=== PATIENT | female | born 1945 | race Caucasian/White ===

== ENCOUNTER 2018-01-23 15:19 | Outpatient (CLI) ==
--- NOTE | 2018-01-23 16:00 | US ---
EXAM: Left lower extremity venous doppler. HISTORY: Left leg pain and swelling. COMPARISON: None available. TECHNIQUE: Multiple grayscale and color doppler images were obtained. FINDINGS: There is normal flow, compressibility and augmentation of flow within the left common femo ral, greater saphenous, profunda, femoral, popliteal, posterior tibial, anterior tibial and peroneal veins. IMPRESSION: No evidence for left lower extremity deep vein thrombosis at the levels examined.
== END 2018-01-23 15:20 | disposition home or self-care (01) ==
LOC: RAD 15:19
PROVIDERS: ATTEND General Practice
DX: M79.89 Other specified soft tissue disorders (principal); M79.605 Pain in left leg; E87.6 Hypokalemia
CPT/HCPCS: 36415; 80069

== ENCOUNTER 2018-12-08 11:51 | Emergency (ER) ==
[2018-12-08 11:56] VITALS: TEMP 98.3; BMI 27.6
[2018-12-08] MEDS ORDERED: CARDIZEM INJ IVP STA ×4 (12:18→16:10)
--- NOTE | 2018-12-08 12:18 | ED.PDOC ---
General ED Provider: Dr. JAYLEN WALDRON Chief Complaint: Respiratory Complaint Stated Complaint: 73 y old pleasant lady registering heart rate at 178/min withy shortness of breath,Calm and conversant says this is the first time lópez she had such a rapid palpitations.Complete work-up for cardiac ischemia and other causes. follows, Time Seen by Physician: 12:00 Mode of Arrival: Walk-In Information Source: Patient, Family Exam Limitations: No limitations [facility] Nursing and Triage Documentation Reviewed and Agree: Yes Does patient meet sepsis criteria?: No System Inflammatory Response Syndrome: Not Applicable Sepsis Protocol: For patient's 13 years and over: Temp is 96.8 and below OR 101 and greater Pulse >90 BPM Resp >20/minute Acutely Altered Mental Status Are patient's symptoms suggestive of a new infection, such as: -Pneumonia -Skin, Soft Tissue -Endocarditis -UTI -Bone, Joint Infection -Implantable Device -Acute Abdominal Infection -Wound Infection -Meningitis -Blood Stream Catheter Infection -Unknown Cardiovascular Complaint Exam - Palpitations Complaint/Exam Onset/Duration: today-last night Symptoms Are: Still present Timing: Constant Initial Severity: Moderate Current Severity: Moderate Character: Reports: Fast Aggravating: Reports: Exertion Alleviating: Reports: Rest Associated Signs and Symptoms: Reports: Lightheadedness Related Surgical History: Reports: None Cardiac Risk Factors: Reports: None Pulmonary Embolism Risk Factors: Reports: None Thyroid Exam: Normal Differential Diagnoses: Cardiomyopathy, CAD, CHF, COPD, Hypokalemia, Paroxysmal SVT Quality Indicators for AMI: EKG in 10min. Quality Indicator For Non-Traumatic Chest Pain/Syncope: EKG Performed Review of Systems - Review Of Systems Constitutional: Reports: Weakness Eyes: Reports: No symptoms Ears, Nose, Mouth, Throat: Reports: No symptoms Respiratory: Reports: Short of air Cardiac: Reports: Palpitations GI: Reports: No symptoms : Reports: No symptoms Musculoskeletal: Reports: No symptoms Neurological: Reports: No symptoms Endocrine: Reports: No symptoms Hematologic/Lymphatic: Reports: No symptoms All Other Systems: Reviewed and Negative Past Medical History - Past Medical History Previously Healthy: Yes Endocrine: Reports: None Cardiovascular: Reports: None Respiratory: Reports: None Hematological: Reports: None Gastrointestinal: Reports: None Genitourinary: Reports: None Neuro/Psych: Reports: None Musculoskeletal: Reports: None Cancer: Reports: None Last Menstrual Period: NA - Surgical History General Surgical History: Reports: Orthopedic - Family History Family History: Reports: None - Social History Smoking Status: Never smoker Hx Substance Use: No Alcohol Screening: None - Immunizations Tetanus Shot up to Date: Yes Influenza Vaccine within 12 Months: No Pneumococcal Vaccine up to Date: No Physical Exam - Physical Exam Appearance: Well-appearing Ill-appearing: None Pain Distress: None Eyes: ESTEBAN, EOMI, Conjunctiva clear ENT: Ears normal, Nose normal Neck: Supple Respiratory: Airway patent, Breath sounds diminished, Rhonchi Cardiovascular: No rub, No murmur GI/: Soft, Nontender, No masses Musculoskeletal: Normal strength, ROM intact, No edema Skin: Warm Neurological: Sensation intact, Motor intact, Reflexes intact Psychiatric: Affect appropriate Physician Notification - Case Discussed Physician Not[facility].Transfered patien Time of Notification: 16:52 (CHF decomp Atrial fib) Critical Care Note - Critical Care Note Total Time (mins): 0 Course - Course Hematology/Chemistry: 12/08/18 12:50 12/08/18 12:50 Orders, Labs, Meds: Lab Review 12/08/18 12/08/18 12:50 12:50 WBC 7.50 RBC 4.41 Hgb 12.6 Hct 39.3 MCV 89.1 MCH 28.6 MCHC 32.1 RDW Coeff of Devonte 14.6 Plt Count 317 Immature Gran % (Auto) 0.3 Neut % (Auto) 67.5 Lymph % (Auto) 24.8 [place] % (Auto) 6.4 Eos % (Auto) 0.7 Baso % (Auto) 0.3 Immature Gran # (Auto) 0.0 Neut # (Auto) 5.1 Lymph # (Auto) 1.9 [place] # (Auto) 0.5 Eos # (Auto) 0.1 Baso # (Auto) 0.0 Sodium 133.3 L Potassium 3.12 L Chloride 96.7 L Carbon Dioxide 26.5 Anion Gap 13.22 BUN 24.9 H Creatinine 0.59 L Estimated GFR (MDRD) 100.00 BUN/Creatinine Ratio 42.20 Glucose 107.3 H Calcium 9.13 Total Bilirubin 0.62 AST 26.5 ALT 19.3 Alkaline Phosphatase 101.9 Total Creatine Kinase 71.3 Troponin I < 0.012 Total Protein 7.35 Albumin 4.23 Globulin 3.12 Albumin/Globulin Ratio 1.35 Orders Category Date Time Status EKG-(ED ONLY) Stat CARDIO 12/08/18 12:38 Completed EKG-(ED ONLY) Stat CARDIO 12/08/18 12:38 Completed NPO REMINDER: IMAGING ONCE CARE 12/08/18 13:17 Completed ED APPLY O2 .ONCE EMERGENCY 12/08/18 12:38 Active ED IV/MEDIPORT/POWERPORT .ONCE EMERGENCY 12/08/18 12:38 Active CBC W/ AUTO DIFF Stat LAB 12/08/18 12:50 Completed COMPREHENSIVE METABOLIC PANEL Stat LAB 12/08/18 12:50 Completed CREATINE KINASE Stat LAB 12/08/18 12:50 Completed TROPONIN I Stat LAB 12/08/18 12:50 Completed 0.9 % Sodium Chloride [Saline Flush] MEDS 12/08/18 12:38 Active 1 syr IVF PRN PRN Diltiazem HCl Inj [Cardizem Inj] MEDS 12/08/18 12:18 Discontinued 15 mg IVP ONCE STA Diltiazem HCl Inj [Cardizem Inj] MEDS 12/08/18 12:27 Discontinued 15 mg IVP ONCE STA Diltiazem HCl Inj [Cardizem Inj] MEDS 12/08/18 16:08 Discontinued 15 mg IVP ONCE STA Diltiazem HCl [Cardizem Inj] MEDS 12/08/18 16:10 Discontinued 15 mg IVP ONCE STA Sodium Chloride 0.9% [Sodium Chloride] 1,000 ml MEDS 12/08/18 12:38 Discontinued IV BOLUS CHEST, 1V AP ONLY Stat RADS 12/08/18 12:[address] CHEST PE PROTOCOL Stat RADS 12/08/18 13:16 Completed Medications Generic Name Dose Route Start Last Admin Trade Name Freq PRN Reason Stop Dose Admin Sodium Chloride 1 syr 12/08/18 12:38 Saline Flush IVF PRN PRN To flush IV Discontinued Medications Generic Name Dose Route Start Last Admin Trade Name Freq PRN Reason Stop Dose Admin Diltiazem HCl 15 mg 12/08/18 12:18 12/08/18 12:30 Cardizem Inj IVP 12/08/18 12:19 15 mg ONCE STA Administration Diltiazem HCl 15 mg 12/08/18 12:27 12/08/18 12:31 Cardizem Inj IVP 12/08/18 12:28 Not Given ONCE STA Diltiazem HCl 15 mg 12/08/18 16:08 12/08/18 16:21 Cardizem Inj IVP 12/08/18 16:09 15 mg ONCE STA Administration Diltiazem HCl 15 mg 12/08/18 16:10 Cardizem Inj IVP 12/08/18 16:11 ONCE STA Sodium Chloride 1,000 mls @ 250 mls/hr 12/08/18 12:38 12/08/18 12:39 Sodium Chloride IV 12/08/18 16:37 250 mls/hr BOLUS STA Administration Vital Signs: Temp Pulse Resp BP Pulse Ox 12/08/18 11:51 98.3 F 128 H 20 123/76 98 LATONYA Risk Score LATONYA Risk Score: Risk Score Odds of by 30D 0 0.1 (0.1-0.2) 1 0.3 (0.2-0.3) 2 0.4 (0.3-0.5) 3 0.7 (0.6-0.9) 4 1.2 (1.0-1.5) 5 2.2 (1.9-2.6) 6 3.0 (2.5-3.6) 7 4.8 (3.8-6.1) Departure - Departure Time of Disposition: 16:48 Disposition: TSF SHORT-TRM HOSP Discharge Problem: Congestive heart failure Instructions: A-fib (Atrial Fibrillation) (ED) Condition: Fair Pt referred to PMD for follow-up: Yes IPMP verified?: No Allergies/Adverse Reactions: Allergies codeine Allergy (Mild, Unverified 12/08/18 12:32) rash May cause patient to be loopy. meperidine HCl [From Demerol] Allergy (Mild, Unverified 12/08/18 12:32) rash May cause patient to be loopy. Home Medications: Ambulatory Orders Calcium Carbonate/Vitamin D3 [Caltrate 600 + D Tablet] 1 each PO BID 12/08/18 Multivitamin 1 cap PO DAILY 12/08/18 Disposition Discussed With: Patient, Family
[2018-12-08] MEDS ORDERED: SODIUM CHLORIDE 1,000 ML IV STA (12:38)
--- NOTE | 2018-12-08 13:57 | DI ---
EXAM: Chest one view HISTORY: Shortness of air COMPARISON: None TECHNIQUE: Single view chest was performed FINDINGS: Heart is enlarged. Pulmonary vascular congestion. Moderate right and small left pleural effusions. Bibasilar atelectasis and/or consolidation. No visible pneumothorax. Right shoulder art hroplasty. Advanced arthropathy left shoulder. IMPRESSION: Cardiomegaly with pulmonary vascular congestion and bilateral pleural effusions, right g reater than left. Bibasilar atelectasis and/or pneumonia.
--- NOTE | 2018-12-08 15:03 | CT ---
EXAM: CTA CHEST (PE PROTOCOL) HISTORY: Shortness of breath, palpitations TECHNIQUE: CTA chest with intravenous contrast. Multiplanar images were provided with 3-D reconstru ctions. 75 mL Omnipaque. COMPARISON: None FINDINGS: No pulmonary arterial filling defects were seen. There is at least mild atherosclerotic disease. Mi ld cardiomegaly is suggested. A few scattered mediastinal lymph nodes are nonspecific. There are moderate volume bilateral pleural effusions slightly greater on the right than on the left. There are bibasilar consolidations which are moderate in degree. Mild pulmonary vascular congestio n. Probable subtle interstitial edema. No pneumothorax. The bones reveal moderate degenerative changes of the spine. Right shoulder arthroplasty. IMPRESSION: 1. No pulmonary arterial thromboembolism identified. 2. Moderate volume bilateral pleural effusions with moderate adjacent consolidations (atelectasis ve rsus pneumonia). 3. Mild cardiomegaly. Mild central vascular congestion and minimal interstitial edema. 4. Nonspecific mediastinal lymph nodes.
[2018-12-08] MEDS ORDERED: LASIX IVP STA ×2 (17:21→17:38)
[2018-12-08] MEDS ORDERED: LASIX ONE (17:22)
[2018-12-08] MEDS ORDERED: CARDIZEM INJ 125 MG in SODIUM CHLORIDE 100 ML IV SCH (17:30)
[2018-12-08] MEDS ORDERED: CARDIZEM INJ ONE (17:30)
[2018-12-08 18:06] VITALS: BP 148/94
--- NOTE | 2018-12-08 18:08 | DI ---
EXAM: One-view chest HISTORY: Shortness of breath sudden onset TECHNIQUE: Single frontal view the chest was obtained. Comparison 12/08/2018 at 1245 hours. FINDINGS: There is stable blunting of the costophrenic angles. Heart is stable size. Interstitial opacities are seen within the lungs bilaterally. There is no pleural separation. There has been tot al right shoulder arthroplasty. There is arthritis of the left shoulder. IMPRESSION: Stable appearance of probable congestive heart failure. Small bilateral pleural effusions.
== END 2018-12-08 18:20 | disposition short-term general hospital (02) ==
LOC: ED 11:51
DX: I50.9 Heart failure, unspecified (principal); R53.1 Weakness; I48.91 Unspecified atrial fibrillation
CPT/HCPCS: 36415; 80053; 82550; 82803; 84484; 85025; 93005; 93010; 96361; 96365; 96375; 96376; 99285

== ENCOUNTER 2018-12-08 18:35 | Outpatient (CLI) ==
[2018-12-08 11:56] VITALS: BMI 27.6
== END 2018-12-08 18:58 | disposition short-term general hospital (02) ==
LOC: AMBL 18:35
PROVIDERS: ATTEND Emergency Medicine
DX: J18.9 Pneumonia, unspecified organism (principal); I48.91 Unspecified atrial fibrillation

== ENCOUNTER 2021-07-08 09:02 | Inpatient (IN) ==
[2021-07-08 12:56] LABS: BORDETELLA PARAPERTUSSIS (PCR) NOT DETECTED (NOT DETECT); BORDETELLA PERTUSSIS (PCR) NOT DETECTED (NOT DETECT); CHLAMYDIA PNEUMONIAE (PCR) NOT DETECTED (NOT DETECT); CORONAVIRUS 229E (PCR) NOT DETECTED (NOT DETECT); CORONAVIRUS HKU1 (PCR) NOT DETECTED (NOT DETECT); CORONAVIRUS NL63 (PCR) NOT DETECTED (NOT DETECT); CORONAVIRUS OC43 (PCR) NOT DETECTED (NOT DETECT); HUMAN METAPNEUMOVIRUS (PCR) NOT DETECTED (NOT DETECT); HUMAN RHINOVIRUS/ENTEROV (PCR) NOT DETECTED (NOT DETECT); INFLUENZA B (PCR) NOT DETECTED (NOT DETECT); MYCOPLASMA PNEUMONIAE (PCR) NOT DETECTED (NOT DETECT); PARAINFLUENZA VIRUS 1 (PCR) NOT DETECTED (NOT DETECT); PARAINFLUENZA VIRUS 2 (PCR) NOT DETECTED (NOT DETECT); PARAINFLUENZA VIRUS 3 (PCR) NOT DETECTED (NOT DETECT); PARAINFLUENZA VIRUS 4 (PCR) NOT DETECTED (NOT DETECT); RESPIRATORY SYNCYTIAL V (PCR) NOT DETECTED (NOT DETECT)
[2021-07-08 13:47] LABS: ADENOVIRUS (PCR) NOT DETECTED (NOT DETECT)
[2021-07-08 13:48] LABS: SARS_COV_2 (PCR) NOT DETECTED (NOT DETECT)
[2021-07-08] MEDS ORDERED: TYLENOL PO PRN (14:51)
[2021-07-08] MEDS ORDERED: ATROPINE SULFATE PFS IVP PRN (14:51)
[2021-07-08] MEDS ORDERED: NITROSTAT SL PRN (14:51)
--- NOTE | 2021-07-08 15:14 | DI ---
EXAM: Chest one view HISTORY: Shortness of breath COMPARISON: 06/29/2021 TECHNIQUE: Single view of the chest was performed FINDINGS: Normal heart size. Normal mediastinal contour. The lungs are clear. No pleural effusion or pneumothorax. No acute osseous abnormality. Right shoulder arthroplasty. IMPRESSION: No acute cardiopulmonary process.
[2021-07-08 15:18] LABS: BASOPHILS % (AUTO) 0.4 % (0.0-3.0); EOSINOPHILS # (AUTO) 0.1 K/ul (0.0-0.7); EOSINOPHILS % (AUTO) 1.8 % (0.0-7.0); HEMATOCRIT 26.5 % (37.0-47.0); HEMOGLOBIN 7.4 g/dl (12.0-16.0); IMMATURE GRANULOCYTE % (AUTO) 0.2 % (0.0-5.0); LYMPHOCYTES # (AUTO) 1.3 K/uL (0.60-3.4); LYMPHOCYTES % (AUTO) 28.4 (10.0-50.0); MEAN CORPUSCULAR HEMOGLOBIN 20.5 pg (27.0-31.0); MEAN CORPUSCULAR HGB CONC 27.9 (31.8-35.4); MEAN CORPUSCULAR VOLUME 73.4 fl (81.0-99.0); MONOCYTES # (AUTO) 0.5 K/uL (0.4-2.0); NEUTROPHILS # (AUTO) 2.7 K/ul (2.0-6.9); NEUTROPHILS % (AUTO) 59.2 % (42.2-75.2); PLATELET COUNT 226 10^3/uL (140-440); RDW COEFFICIENT OF VARIATION 21.4 % (11.6-14.8); RED BLOOD COUNT 3.61 10^6/ul (4.20-5.40)
[2021-07-08 15:31] LABS: ALANINE AMINOTRANSFERASE 17.2 U/L (0-35); ALBUMIN 3.6 g/dL (3.5-5.0); ALKALINE PHOSPHATASE 145.7 U/L (53-141); ASPARTATE AMINO TRANSFERASE 33.3 U/L (14-36); BILIRUBIN,TOTAL 0.22 mg/dL (0.2-1.3); BLOOD UREA NITROGEN 22.5 mg/dL (7-17); CALCIUM 8.74 mg/dL (8.4-10.2); CARBON DIOXIDE 32.3 mmol/L (22-30.0); CHLORIDE 98.6 mmol/L (98-107); CREATININE 0.52 mg/dL (0.60-1.30); POTASSIUM 3.26 mmol/L (3.5-5.1); TOTAL PROTEIN 6.99 g/dL (6.3-8.2)
[2021-07-08 15:33] LABS: PROTHROMBIN TIME 16.1 SEC (9.3-11.0)
[2021-07-08 15:43] LABS: ANISOCYTOSIS 3+ (NOT PRESENT); HYPOCHROMASIA 3+ (NOT PRESENT); STOMATOCYTES 1+ (NOT PRESENT); TARGET CELLS 2+ (NOT PRESENT)
[2021-07-08 15:59] VITALS: BMI 20.7
[2021-07-08 17:11] LABS: BILIRUBIN,URINE Negative (NEGATIVE); CLARITY,URINE Clear (CLEAR); COLOR,URINE Yellow (YELLOW); GLUCOSE, URINE (UA) Negative (NEGATIVE); KETONES,URINE Negative (NEGATIVE); LEUKOCYTE ESTERASE ,URINE Negative (NEGATIVE); NITRITE,URINE Negative (NEGATIVE); PROTEIN,URINE 1+ (NEGATIVE); URINE, BLOOD Negative (NEGATIVE); UROBILINOGEN,URINE 0.2 (0.2)
[2021-07-08 17:13] LABS: BACTERIA,URINE TRACE (NOT PRESENT)
[2021-07-08] MEDS: PEPCID PO SCH (17:16)
[2021-07-08] MEDS: PROTONIX PO SCH (17:16)
[2021-07-08] MEDS: COREG PO SCH (17:16)
[2021-07-08] MEDS: FERROUS SULFATE PO SCH (20:23)
[2021-07-08] MEDS: CARDIZEM PO SCH (20:23)
[2021-07-08] MEDS ORDERED: NON-FORMULARY MEDICATION (Ferrous Sulfate [Iron] 325 mg (65 mg iron) Tablet) PO SCH (21:00)
[2021-07-08] MEDS ORDERED: COREG PO SCH (21:00)
[2021-07-09 01:46] LABS: ALANINE AMINOTRANSFERASE 23.9 U/L (0-35); ALBUMIN 3.33 g/dL (3.5-5.0); ALKALINE PHOSPHATASE 134.1 U/L (53-141); BILIRUBIN,TOTAL 0.82 mg/dL (0.2-1.3); BLOOD UREA NITROGEN 21.2 mg/dL (7-17); CALCIUM 8.56 mg/dL (8.4-10.2); CARBON DIOXIDE 29.1 mmol/L (22-30.0); CHLORIDE 102.7 mmol/L (98-107); CREATININE 0.46 mg/dL (0.60-1.30); GLUCOSE 132.4 mg/dL (74-106); POTASSIUM 3.64 mmol/L (3.5-5.1); TOTAL PROTEIN 6.61 g/dL (6.3-8.2)
[2021-07-09 01:51] LABS: BASOPHILS % (AUTO) 0.5 % (0.0-3.0); EOSINOPHILS # (AUTO) 0.1 K/ul (0.0-0.7); EOSINOPHILS % (AUTO) 1.5 % (0.0-7.0); HEMATOCRIT 32.7 % (37.0-47.0); HEMOGLOBIN 9.8 g/dl (12.0-16.0); IMMATURE GRANULOCYTE % (AUTO) 0.2 % (0.0-5.0); LYMPHOCYTES # (AUTO) 1.1 K/uL (0.60-3.4); MEAN CORPUSCULAR HEMOGLOBIN 22.8 pg (27.0-31.0); MONOCYTES # (AUTO) 0.5 K/uL (0.4-2.0); MONOCYTES % (AUTO) 8.4 (0-10); NEUTROPHILS # (AUTO) 3.8 K/ul (2.0-6.9); NEUTROPHILS % (AUTO) 69.4 % (42.2-75.2); PLATELET COUNT 222 10^3/uL (140-440); RDW COEFFICIENT OF VARIATION 21.3 % (11.6-14.8)
[2021-07-09 02:34] LABS: PROTHROMBIN TIME 14.5 SEC (9.3-11.0)
[2021-07-09] MEDS: PEPCID PO SCH (05:45)
[2021-07-09] MEDS: PROTONIX PO SCH (05:45)
[2021-07-09 05:58] VITALS: BP 118/68; TEMP 97.6
[2021-07-09] MEDS ORDERED: LASIX TAB PO SCH (06:30)
[2021-07-09 08:19] LABS: OCCULT BLOOD SAMPLE 1 POSITIVE (NEGATIVE)
[2021-07-09] MEDS ORDERED: ZESTRIL PO SCH (09:00)
[2021-07-09] MEDS ORDERED: LANOXIN PO SCH (09:00)
[2021-07-09] MEDS ORDERED: LIPITOR PO SCH (09:00)
[2021-07-09] MEDS: COREG PO SCH (09:44)
[2021-07-09] MEDS: FERROUS SULFATE PO SCH (09:45)
[2021-07-09] MEDS: CARDIZEM PO SCH (09:45)
[2021-07-10 05:55] LABS: OCCULT BLOOD SAMPLE 2 NO SPECIMEN RECEIVED (NEGATIVE); OCCULT BLOOD SAMPLE 3 NO SPECIMEN RECEIVED (NEGATIVE)
--- NOTE | 2021-07-13 10:01 | HP ---
DATE OF SERVICE: 07/08/21 REASON FOR HOSPITALIZATION/HISTORY OF PRESENT ILLNESS: Hgb 7.5, pale and short of breath. Was 8.1 07/04. started Pepcid and Iron Denies blood in stool. 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 HEENT: No sinus drainage, no sore throat. RESPIRATORY: No cough, no congestion. CARDIOVASCULAR: No atypical chest pain for coronary artery disease. No angina, CHF symptoms, palpitations. Shortness of breath. GASTROINTESTINAL: No melena or abdominal pain. No GERD. GENITOURINARY: No hematuria, no prostatism, no polyuria. GRADING MACHINE OPERATOR: No blackout, no dizziness, no headache, no double vision. MUSCULOSKELETAL: No osteoarthritis pain, no joint swelling. ENDOCRINE: Weight loss, no weight gain. SKIN: Not dry, no rash. PSYCHIATRIC: Not anxious, no depression, no suicidal thoughts, no homicidal thoughts. SOCIAL HISTORY: Marital Status: . Alcohol Usage: No. Tobacco Usage: No. FAMILY HISTORY: Father Mother MEDICATIONS: Diltazem 60mg daily Coreg 12.5mg twice daily Digoxin 0.125mg daily Lisinopril 5mg daily Lasix 40mg PO daily Atorvastatin 10mg daily Coumadin 5mg Pepcid 20mg BID Iron 325mg BID ALLERGIES: Codeine Demerol PHYSICAL EXAMINATION: V/S: GENERAL APPEARANCE: Oriented times three. HEENT: Pallor. Dry mucous membranes. NECK: No JVP, no bruits. RESPIRATORY: Decreased breath sounds. CARDIOVASCULAR: S1, S2, no S3, no murmur. No cyanosis, clubbing. No ascites. GI/ABDOMEN: No tenderness. Bowel sounds are active. EXTREMITIES: +2 edema Left lower extremity, +1 Right lower extremity, pulses +1, equal. GRADING MACHINE OPERATOR: Deep tendon reflexes, sensory, motor and gait all normal. RECTAL: Colonoscopy refused/PELVIC: Refused years ago. ASSESSMENT: 1. Symptomatic anemia 2. Shortness of breath 3. Anemia 4. Leg edema 5. Atrial fibrillation- Coumadin 6. Dilated Cardiomyopathy 7. Calcified mitral annulus 8. Trace mitral regurgitation 9. Enlarged right ventricle, Enlarged left atrial cavity ejection fraction 55% 07/05 10.Mildly hypokinetic septum 11.Cardiac cath 12/01-No occlusion- BHP 12.B12 deficiency 13.Pulmonary hypertension 14.Left THR 15.Right shoulder replacement PLAN: 1. Admit 2. Routine telemetry orders 3. No cardiac markers 4. CBC and CMP INR now and daily 5. Type cross and administer two units of PRBC's 6. Continue all home medication 7. Hold Coumadin 8. Stool for occult blood 9. Protonix 40mg BID 10.U/A 11.Regular diet 12.O2 at 1-2 liters nasal canula PRN TIME SPENT: More than 70 minutes. MTDD
--- NOTE | 2021-08-06 13:14 | DS ---
DATE OF SERVICE: 07/09/2021 FINAL DIAGNOSIS: 1. Symptomatic anemia 2. Shortness of breath 3. Dependent leg edema 4. Atrial fibrillation on Coumadin 5. Dilated cardiomyopathy 6. Calcified mitral annulus 7. Trace mitral regurgitation 8. Enlarged right ventricle 9. Pulmonary hypertension DISCHARGE INSTRUCTIONS: Discharge home. Followup with us in a weeks. MEDICATIONS AT DISCHARGE: Atorvastatin 10mg PO daily Carvedilol 12.5mg PO BID Digoxin 125mcg PO daily Lasix 40mg PO daily Lisinopril 5mg Po daily Coumadin 5mg PO daily Cardizem 60mg PO BID Pepcid 20mg BID Iron 325mg PO BID DIET INSTRUCTIONS: Regular diet, Low salt. ACTIVITY: Keep legs elevated. Gradually resume activity as tolerated with rolling walker. DISEASE SPECIFIC EDUCATION: Anemia Followup Diet Leg elevation HOSPITAL COURSE: This is a 76 year old white female who was a direct admit from our office. She had a history of anemia and rechecked her Hgb. This is a fairly new patient to us. We rechecked her hgb after a few days of starting her on Iron and Pepcid and it was 8.1 hgb and then 4 days later was 7.5.In our office she exhibited pallor, shortness of breath and she could not walk. She had 2+ edema left lower extremity and 1+ edema in the right lower extremity. She was admitted with symptomatic anemia and shortness of breath. She was started on routine telemetry orders. She is on Coumadin as she has a history of afib. She was typed and crossed and given two units of packed red cells with IV Lasix 20mg in between. We instructed to hold her Coumadin. Did stool for occult blood. Started on her Protonix IV 40mg Q 12 hours, urinalysis and oxygen at 1-2 liters and ABG on room air. Following day after giving two units and given IV Lasix hgb was up to 9.8. Leg edema had improved. She reported feeling much better. She stated that she wanted to go home. Stool for occult blood was positive. Urine was normal. She will go home and continue her iron PO. We will continue on Protonix along with Pepcid. We will refer her for a colonoscopy. She will followup in our office on Tuesday with repeat CBC and INR. Discharged in stable condition. TIME SPENT: More than 60 minutes. [facility]
== END 2021-07-09 13:07 | disposition home or self-care (01) | DRG 812 ==
LOC: LAB 09:02 → MEDSURG A 14:25
PROVIDERS: ADMIT Internal Medicine; ATTEND Internal Medicine

== ENCOUNTER 2022-11-01 13:54 | Inpatient (IN) ==
[2022-11-01 15:21] LABS: SARS COV-2 RNA RAPID NAAT NEGATIVE (NEGATIVE)
[2022-11-01] MEDS ORDERED: ATROPINE SULFATE PFS IVP PRN (16:22)
[2022-11-01] MEDS ORDERED: TYLENOL PO PRN (16:22)
[2022-11-01] MEDS ORDERED: NITROSTAT SL PRN (16:22)
[2022-11-01] MEDS ORDERED: DECADRON IM ONE (16:26)
[2022-11-01] MEDS ORDERED: LASIX IVP ONE (16:27)
[2022-11-01] MEDS ORDERED: NORCO 5-325 PO PRN (16:32)
[2022-11-01 16:48] LABS: BASOPHILS % (AUTO) 0.6 % (0.0-3.0); EOSINOPHILS # (AUTO) 0.1 K/ul (0.0-0.7); EOSINOPHILS % (AUTO) 1.8 % (0.0-7.0); HEMATOCRIT 40.4 % (37.0-47.0); IMMATURE GRANULOCYTE % (AUTO) 0.2 % (0.0-5.0); LYMPHOCYTES # (AUTO) 1.3 K/uL (0.60-3.4); LYMPHOCYTES % (AUTO) 20.5 (10.0-50.0); MEAN CORPUSCULAR HEMOGLOBIN 30.2 pg (27.0-31.0); MEAN CORPUSCULAR HGB CONC 32.2 (31.8-35.4); MEAN CORPUSCULAR VOLUME 93.7 fl (81.0-99.0); MONOCYTES # (AUTO) 0.5 K/uL (0.4-2.0); MONOCYTES % (AUTO) 7.7 (0-10); NEUTROPHILS # (AUTO) 4.3 K/ul (2.0-6.9); NEUTROPHILS % (AUTO) 69.2 % (42.2-75.2); PLATELET COUNT 195 10^3/uL (140-440); RDW COEFFICIENT OF VARIATION 13.5 % (11.6-14.8); RED BLOOD COUNT 4.31 10^6/ul (4.20-5.40); WHITE BLOOD COUNT 6.23 K/ul (4.6-10.2)
[2022-11-01 16:49] VITALS: BMI 19.9
[2022-11-01] MEDS ORDERED: SODIUM CHLORIDE 1,000 ML IV SCH (17:00)
[2022-11-01 17:06] LABS: ALANINE AMINOTRANSFERASE 17.8 U/L (0-35); ALKALINE PHOSPHATASE 138.7 U/L (53-141); ASPARTATE AMINO TRANSFERASE 24.1 U/L (14-36); BILIRUBIN,TOTAL 0.61 mg/dL (0.2-1.3); BLOOD UREA NITROGEN 15.2 mg/dL (7-17); CALCIUM 8.83 mg/dL (8.4-10.2); CHLORIDE 95.1 mmol/L (98-107); CREATININE 0.53 mg/dL (0.60-1.30); GLUCOSE 139.9 mg/dL (74-106); POTASSIUM 3.11 mmol/L (3.5-5.1); PROTHROMBIN TIME 38.1 SEC (9.3-11.0); SODIUM 135.9 mmol/L (134.5-145); TOTAL PROTEIN 7.36 g/dL (6.3-8.2)
[2022-11-01 17:12] LABS: CREATINE KINASE 73.5 U/L (30-135)
[2022-11-01] MEDS ORDERED: ULTRAM PO PRN (17:23)
[2022-11-01 17:24] LABS: ALBUMIN 3.89 g/dL (3.5-5.0)
[2022-11-01 17:25] LABS: TROPONIN I < 0.012 ng/ml (0.0000-0.120)
--- NOTE | 2022-11-01 17:49 | DI ---
EXAM: CHEST ONE-VIEW History: Shortness of breath FINDINGS: Cardiac silhouette is upper limits. Pulmonary vasculature is normal. The lungs are hyper expanded. Chronic elevation of the left hemidiaphragm. No infiltrative opacities are seen. No acut e chest wall abnormality. Right shoulder arthroplasty. Impression: Borderline heart size without acute cardiopulmonary disease
[2022-11-01] MEDS: COREG PO SCH (17:59)
[2022-11-01 18:27] LABS: BILIRUBIN,URINE Negative (NEGATIVE); CLARITY,URINE Clear (CLEAR); COLOR,URINE Yellow (YELLOW); GLUCOSE, URINE (UA) Negative (NEGATIVE); KETONES,URINE Negative (NEGATIVE); LEUKOCYTE ESTERASE ,URINE Negative (NEGATIVE); NITRITE,URINE Negative (NEGATIVE); PROTEIN,URINE Negative (NEGATIVE); URINE, BLOOD Negative (NEGATIVE)
[2022-11-01] MEDS: CARDIZEM PO SCH (20:21)
[2022-11-01] MEDS: PEPCID PO SCH (20:21)
[2022-11-01] MEDS: FERROUS SULFATE PO SCH (20:21)
[2022-11-02 01:06] LABS: CREATINE KINASE 75.5 U/L (30-135)
[2022-11-02 01:23] LABS: TROPONIN I < 0.012 ng/ml (0.0000-0.120)
[2022-11-02 05:04] LABS: HEMATOCRIT 37.2 % (37.0-47.0); HEMOGLOBIN 12.2 g/dl (12.0-16.0); IMMATURE GRANULOCYTE % (AUTO) 0.2 % (0.0-5.0); LYMPHOCYTES # (AUTO) 0.6 K/uL (0.60-3.4); LYMPHOCYTES % (AUTO) 14.7 (10.0-50.0); MEAN CORPUSCULAR HEMOGLOBIN 30.3 pg (27.0-31.0); MEAN CORPUSCULAR HGB CONC 32.8 (31.8-35.4); MEAN CORPUSCULAR VOLUME 92.5 fl (81.0-99.0); MONOCYTES # (AUTO) 0.1 K/uL (0.4-2.0); MONOCYTES % (AUTO) 3.2 (0-10); NEUTROPHILS # (AUTO) 3.3 K/ul (2.0-6.9); NEUTROPHILS % (AUTO) 81.9 % (42.2-75.2); PLATELET COUNT 146 10^3/uL (140-440); RDW COEFFICIENT OF VARIATION 13.3 % (11.6-14.8); RED BLOOD COUNT 4.02 10^6/ul (4.20-5.40); WHITE BLOOD COUNT 4.07 K/ul (4.6-10.2)
[2022-11-02 05:16] LABS: ALANINE AMINOTRANSFERASE 18.6 U/L (0-35); ALBUMIN 3.5 g/dL (3.5-5.0); ALKALINE PHOSPHATASE 127.7 U/L (53-141); ASPARTATE AMINO TRANSFERASE 25.5 U/L (14-36); BILIRUBIN,TOTAL 0.36 mg/dL (0.2-1.3); BLOOD UREA NITROGEN 14.4 mg/dL (7-17); CALCIUM 8.36 mg/dL (8.4-10.2); CARBON DIOXIDE 34.7 mmol/L (22-30.0); CHLORIDE 96.5 mmol/L (98-107); CREATININE 0.41 mg/dL (0.60-1.30); POTASSIUM 3.09 mmol/L (3.5-5.1); SODIUM 134.9 mmol/L (134.5-145); TOTAL PROTEIN 6.72 g/dL (6.3-8.2)
[2022-11-02] MEDS: LASIX TAB PO SCH (05:44)
[2022-11-02] MEDS ORDERED: LASIX IVP SCH (06:30)
[2022-11-02] MEDS ORDERED: DECADRON IM ONE (08:17)
[2022-11-02 08:37] LABS: PROTHROMBIN TIME 36.3 SEC (9.3-11.0)
[2022-11-02] MEDS: LIPITOR PO SCH (09:28)
[2022-11-02] MEDS: PEPCID PO SCH ×2 (09:28→17:34)
[2022-11-02] MEDS: FERROUS SULFATE PO SCH ×2 (09:28→20:44)
[2022-11-02] MEDS: ZESTRIL PO SCH (09:29)
[2022-11-02] MEDS: K-DUR PO SCH ×3 (09:29→17:34)
[2022-11-02] MEDS: CARDIZEM PO SCH ×2 (09:29→20:44)
[2022-11-02] MEDS: COREG PO SCH ×2 (09:29→17:34)
--- NOTE | 2022-11-02 09:37 | PCM.PROG ---
Attending Provider: ATTENDING PROVIDER: Dr. SUSANA ROJAS APRN This patient is seen with Susana Rojas, Nurse Practitioner. DATE OF SERVICE: 11/02/22 SUBJECTIVE: This 77 year old /WHITE F was hospitalized 11/01/22. The patient states she has been voiding a lot. Leg edema significantly improved. Left knee pain slightly improved. Will give Decadron IM 2 mg today. Discontinue IV fluids. Will give oral potassium. Digoxin level is okay. INR pending. REVIEW OF SYSTEMS: CONSTITUTIONAL: Weakness. No night sweats. No fatigue, malaise, lethargy. No fever or chills. HEENT: Eyes: No visual changes. No eye pain. No eye discharge. ENT: No runny nose. No epistaxis. No sinus pain. No odynophagia. No congestion. RESPIRATORY: Shortness of breath. No cough, no congestion. No hemoptysis. CARDIOVASCULAR: No angina symptoms. No CHF symptoms. No atypical chest pain for CAD. No palpitations. No orthopnea.. GASTROINTESTINAL: No abdominal pain. No nausea or vomiting. No diarrhea or constipation. No hematemesis. No hematochezia. GENITOURINARY: No urgency. No frequency. No dysuria. No hematuria. No obstructive symptoms. No discharge. No pain. No significant abnormal bleeding. MUSCULOSKELETAL: Left knee pain. Leg edema. NEUROLOGICAL: Awake, alert, oriented to time, place and person. No headache. No neck pain. No syncope. No seizures. No dizziness. PSYCHIATRIC: Not anxious. No depression. No suicidal thoughts. No homicidal thoughts. SKIN: No rash. No lesions. No wounds. ENDOCRINE: No unexplained weight loss. No weight gain. HEMATOLOGIC/LYMPHATIC: No anemia. No purpura. No petechiae. No prolonged or excessive bleeding. No palpable lymph nodes. PHYSICAL EXAMINATION: GENERAL: The patient is awake, alert and oriented, lying/sitting in bed in no distress. VITAL SIGNS: Temperature 97.8 F, Pulse 97, Respiratory Rate 18, BP 119/72, Pul se Ox 99% HEENT: Head normocephalic, atraumatic. Eyes: Extraocular muscles are intact. Pupils are equal, round and reactive to light and accommodation. Ears: No lesions. Nose appeared normal. Throat: No exudate or erythema. NECK: Supple. No JVD, no carotid bruit. No lymphadenopathy or thyromegaly. LUNGS: Diminished breath sounds. Clear to auscultation. Percussion note normal. Chest symmetrical. HEART: S1, S2, no S3. Grade I murmur. Irregular heart rate. No cyanosis or clubbing. No ascites. Pulses: Dorsalis pedis and posterior tibial pulses +1 to +2 both sides. ABDOMEN: Soft. Non-tender. Bowel sounds active. No CVA tenderness. No mass felt. EXTREMITIES: Trace leg edema. Left knee joint effusion. Full range of motion of all extremities, equal. NEUROLOGIC: No focal deficit. Cranial nerves II through XII are grossly intact. No headache. No double vision. SKIN: Not dry. Intact. Turgor-normal. LYMPHATIC: No palpable lymph nodes/no lymphedema. MUSCULOSKELETAL: Normal joints with no swelling. Muscle tone is normal. LAB REVIEW: 11/02/22 04:45 11/02/22 04:45 11/02/22 04:45: Sodium 134.9, Potassium 3.09 L, Chloride 96.5 L, Carbon Dioxide 34.7 H, Anion Gap 6.79, BUN 14.4, Creatinine 0.41 L, Estimated GFR (MDRD) 150.00, BUN/Creatinine Ratio 35.12, Glucose 151.0 H, Calcium 8.36 L, Total Bilirubin 0.36, AST 25.5, ALT 18.6, Alkaline Phosphatase 127.7, Total Protein 6.72, Albumin 3.50, Globulin 3.22, Albumin/Globulin Ratio 1.08 11/02/22 04:45: WBC 4.07 L, RBC 4.02 L, Hgb 12.2, Hct 37.2, MCV 92.5, MCH 30.3, MCHC 32.8, RDW Coeff of Devonte 13.3, Plt Count 146, Immature Gran % (Auto) 0.2, Neut % (Auto) 81.9 H, Lymph % (Auto) 14.7, Harlan % (Auto) 3.2, Eos % (Auto) 0.0, Baso % (Auto) 0.0, Neut # (Auto) 3.3, Lymph # (Auto) 0.6, Harlan # (Auto) 0.1 L, Eos # (Auto) 0.0, Baso # (Auto) 0.0, Immature Gran # (Auto) 0.0 11/02/22 00:35: Total Creatine Kinase 75.5, Troponin I < 0.012 11/01/22 18:15: Urine Color Yellow, Urine Clarity Clear, Urine pH 7.0, Ur Specific [place] 1.015, Urine Protein Negative, Urine Glucose (UA) Negative, Urine Ketones Negative, Urine Blood Negative, Urine Nitrite Negative, Urine Bilirubin Negative, Urine Urobilinogen 1.0 H, Ur Leukocyte Esterase Negative 11/01/22 16:38: Digoxin 0.98 11/01/22 16:38: PT 38.1 H, INR 3.91 H 11/01/22 16:38: Total Creatine Kinase 73.5, Troponin I < 0.012 11/01/22 16:38: Sodium 135.9, Potassium 3.11 L, Chloride 95.1 L, Carbon Dioxide 35.0 H, Anion Gap 8.91, BUN 15.2, Creatinine 0.53 L, Estimated GFR (MDRD) 112.00, BUN/Creatinine Ratio 28.67, Glucose 139.9 H, Calcium 8.83, Total Bilirubin 0.61, AST 24.1, ALT 17.8, Alkaline Phosphatase 138.7, Total Protein 7.36, Albumin 3.89, Globulin 3.47, Albumin/Globulin Ratio 1.12 11/01/22 16:38: WBC 6.23, RBC 4.31, Hgb 13.0, Hct 40.4, MCV 93.7, MCH 30.2, MCHC 32.2, RDW Coeff of Devonte 13.5, Plt Count 195, Immature Gran % (Auto) 0.2, Neut % (Auto) 69.2, Lymph % (Auto) 20.5, Harlan % (Auto) 7.7, Eos % (Auto) 1.8, Baso % (Auto) 0.6, Neut # (Auto) 4.3, Lymph # (Auto) 1.3, Harlan # (Auto) 0.5, Eos # (Auto) 0.1, Baso # (Auto) 0.0, Immature Gran # (Auto) 0.0 11/01/22 14:11: SARS CoV-2 RNA Rapid [place] Negative ASSESSMENT: Please see below. l1. Shortness of breath. 2. Leg edema. 3. Left knee pain. 4. Atrial fibrillation. 5. Left knee pain. 6. Hypokalemia. PLAN: 1. Lasix now and daily IV. 2. Hold Coumadin - call Susana with INR level. 3. Tramadol 50 mg x 3 daily. 4. Stop Hydrocodone. 5. Stop IV fluids. 6. Potassium 20 mg t.i.d. 7. Do not intubate. 8. Decadron IM 2 mg. 9. PT/OT evaluation. Plan and coordination of the patient's care discussed in the presence of Real Estate Manager and nurse. CONDITION: Stable TIME SPENT: 35 MINUTES SCRIBED BY: Jemima DÍAZ scribed while in presence of service performed by Susana Rojas APRN on 11/02/22 ([id number])
[2022-11-02] MEDS: LANOXIN PO SCH (10:05)
--- NOTE | 2022-11-02 10:09 | HP ---
DATE OF SERVICE: 11/01/22 REASON FOR HOSPITALIZATION/HISTORY OF PRESENT ILLNESS: 77-year-old White/ female admitted to the hospital with shortness of breath, legs more swollen, can't walk, left knee swollen. No signs or symptoms of shortness of breath, coronary artery disease or Covid. PAST MEDICAL HISTORY/SURGICAL HISTORY: Ataxia Dyslipidemia Back pain Anemia History of sacral fracture Atrial fibrillation on Coumadin Dilated cardiomyopathy Cardiac catheterization 12/01 B12 deficiency Pulmonary hypertension Left total hip replacement Right shoulder pain/repair Calcific mitral annulus Trace mitral regurgitation Hypokinetic septum REVIEW OF SYSTEMS: CONSTITUTIONAL: Fatigue. HEENT: No sinus drainage, no sore throat. RESPIRATORY: Cough. CARDIOVASCULAR: No atypical chest pain for coronary artery disease. No angina, CHF symptoms, palpitations or shortness of breath. GASTROINTESTINAL: No melena or abdominal pain. No GERD. GENITOURINARY: No hematuria, no polyuria. IP COUNSEL: Gait - unable to walk. No blackout, no dizziness, no headache, no double vision. MUSCULOSKELETAL: Left knee swelling. No osteoarthritis pain, no joint swelling. ENDOCRINE: No weight loss, no weight gain. SKIN: Not dry, no rash. PSYCHIATRIC: Not anxious, no depression, no suicidal thoughts, no homicidal thoughts. SOCIAL HISTORY: Nonsmoker. , retired. FAMILY HISTORY: 3 brothers , 3 sisters , one with cardiac disease, one with COPD, all with Type 2 DM. Father . Mother - [place]. MEDICATIONS: Atorvastatin 10 mg p.o. daily Carvedilol 12.5 mg one tablet twice daily with meals Digoxin 125 mcg p.o. daily Diltiazem 60 mg p.o. twice a day Famotidine 20 mg p.o. twice a day Ferrous Sulfate 325 mg p.o. orally twice a day Lasix 40 mg p.o. every other day Lisinopril 5 mg tablet p.o. daily Tramadol 50 mg p.o. twice a day as needed for pain, mild Warfarin 5 mg p.o. daily, may take extra 1/2-1 tablet as needed R/T INR ALLERGIES: MEPIRIDINE HCI, CODEINE PHYSICAL EXAMINATION: V/S: Pulse 80, BP 100/60, temperature 98.4, 02 sat 94%. GENERAL APPEARANCE: Oriented times three. Pale. HEENT: Normal. NECK: No JVP, no bruits. RESPIRATORY: Decreased breath sounds. Lungs are clear. CARDIOVASCULAR: Irregular heart rate. Murmur I/. No cyanosis, clubbing. No ascites. GI/ABDOMEN: No tenderness. Bowel sounds are active. EXTREMITIES: +2 bilateral lower extremity edema, pulses +1, equal. IP COUNSEL: Deep tendon reflexes, sensory, motor and gait all normal. RECTAL/PELVIC: Refused colonoscopy. Mammogram refused. ASSESSMENT: 1. Shortness of breath. 2. Leg edema. 3. Left knee pain. 4. Leg weakness. 5. Ataxia. 6. Dyslipidemia. 7. Back pain. 8. Anemia. 9. History of sacral fracture. 10. Atrial fibrillation on Coumadin. 11. Dilated cardiomyopathy. 12. Cardiac catheterization 12/01. 13. B12 deficiency. 14. Pulmonary hypertension. 15. Left total hip replacement. 16. Right shoulder pain/repair. 17. Calcific mitral annulus. 18. Trace mitral regurgitation. 19. Hypokinetic septum. PLAN: 1. CBC, CMP, INR now and daily. 2. Digoxin level. 3. Routine telemetry orders. 4. Elevate legs. 5. Daily weights. 6. I & O. 7. 40 mg Lasix IV now times one. 8. Chest x-ray. 9. UA. 10. Decadron 1 cc IM now. 11. Regular diet. 12. 02 09/05 p.r.n. 13. NS IV @ 50 cc/hr. 14. DNR - CPR only per patient. 15. [place] 5/325 t.i.d. p.r.n. p.o. TIME SPENT: More than 75 minutes. CLEOD
[2022-11-02] MEDS: ULTRAM PO PRN ×2 (10:17→20:44)
--- NOTE | 2022-11-02 12:00 | RS.PTINEVL ---
Subjective - Patient information Date of Evaluation: 11/02/22 Date of Arrival on Unit: 11/01/22 Admitted From:: Home Diagnosis: LE edema, weakness, impaired mobility Usual Living Arrangement: With Spouse Living Arrangement Comments: pt lives with elderly spouse. pt's son comes several times a day to transfer her. Home Environment: House Medical History: Hypertension, CHF, Arthritis, Cancer (breast CA) Medical History Comments:: pulmonary HTN, Afib, mitral valve regurgitation, dilated cardiomyopathy, ataxia, R ventricular hypertrophy Surgical History: Hip Replacement, Shoulder Replacement, Tonsillectomy, Hysterectomy Surgical History Comments:: appey Medications: see chart Subjective Information/ Patient Comments:: pt states that she has been unable to bear weight on her legs for 3 weeks due to pain and weakness. She states she saw the ortho MD and he drained fluid off her knee and told her that it was bone on bone. The MD also told her she was not a candidate for TKR. She states she is planning to go to [place] for Rehab to be able to transfer herself at home and not have to depend on her son. - Level of function Abilities prior to this admission: Prior to 3 weeks ago pt amb independently and was independent with ADl's Current Level of Function: Partially Dependent Current Equipment Used at Home: wheelchair, walker, Pain Assessement - Location B knees Description: Sharp, Aching Intensity: 3 Pain Behavior: Guarding, Rubbing Site Pain Aggravating Factors: Changing Position Pain Alleviating Factors: Medication Interventions - Objective Patient Orientation: Person, Place, Time, Situation Current Interventions: IV's, Telemetry Observation: pt with pure wick in place. pt with wounds to bottom. Range of Motion - ROM Right Upper Extremity AROM: Slight limitation (limited shld flex) Left Upper Extremity AROM: Slight limitation (limited shld flex) Right Lower Extremity AROM: Moderate limitation (limited B knee flex) Left Lower Extremity AROM: Moderate limitation (limited B knee flex) Muscle Strength - Muscle Strength Right Upper Extremity Strength: Mild Weakness (shld flex 3/5, elbow flex/ext 4/5) Left Upper Extremity Strength: Mild Weakness (shld flex 3/5, elbow flex/ext 4/5) Right Lower Extremity Strength: Mild Weakness (hip flex 3+/5, knee flex 3-/5, ext 3/5, ankle DF/PF 4-/5) Left Lower Extremity Strength: Mild Weakness (hip flex 3+/5, knee flex 3-/5, ext 3/5, ankle DF/PF 4-/5) Sensation - Sensation Right Upper Extremity Sensation: Intact/Normal Left Upper Extremity Sensation: Intact/Normal Right Lower Extremity Sensation: Intact/Normal Left Lower Extremity Sensation: Intact/Normal Palpation Palpation Findings: Tenderness (L knee ) Balance - Sitting Balance and Reactions Static Sitting Balance: Fair Dynamic Sitting Balance: Poor (poor+) Sitting Equilibrium Reactions: Delayed Left, Delayed Right Sitting Protective Reactions: Delayed Left, Delayed Right - Standing Balance and Reactions Static Standing Balance: Poor Dynamic Standing Balance: Poor Standing Equilibrium Reactions: Delayed Left, Delayed Right Standing Protective Reactions: Delayed Left, Delayed Right - Comments Balance Assessment Comments: pt able to sit at edge of bed unsupported without challenges. Functional Mobility - Bed Mobility Rolling R/L: Min Assist Supine to Sit: CGA - Transfers Sit to Stand: Min Assist, 2 person assist Stand to Sit: Min Assist, 2 person assist - Safety Awareness Safety Awareness: Fair GLORIA INDEX SCORE: n/a Ambulation - Ambulation Assistive Device Used: Rolling Walker Orthotic/Prosthetic Device: No Distance: 2-3 steps Assistance needed with Ambulation: Min Assist, Mod Assist, 2 person assist Gait Deviations: Forward posture, Short stride Ambulation Comments: pt amb with rwx bed to chair with flexed posture, decreased step length, with B knee flex. Factors Affecting Ambulation: Decreased Balance, Pain, Weakness, Decreased ROM, Decreased Safety, Limited Endurance Treatment time - Time with patient Length of Evaluation: 21 Total treatment time: 26 Patient Education - Education Patient Education: Activity Modification, Education of Plan of Care Teaching Recipient: Patient Teaching Methods: Discussion (discussion regarding POC and safety.) Assessment - Assessment Problem List:: Decreased level of function, Requires training/education, Decreased safety/Risk of falls, Weakness, Pain limits previous level of function Rehab Potential: Good Further Therapy Indicated?: Yes Candidate for Swing Bed for Therapy Services?: Feel pt may not be a candidate for swing bed may require fdc care Evaluation Complexity: HISTORY: Medium, EXAM OF BODY SYSTEMS: Medium, CLINICAL PRESENTATION: Medium, CLINICAL DECISION MAKING: Medium Patient's Goal(s): be able to get my self in/out bed, on/off commode and not have to call my son Short Term Goals GOAL #1: pt demonstrate rolling and scooting in bed CGA Goal to be met by: 11/04/22 GOAL #2: Transfer sup to/from sit CGA Goal to be met by: 11/04/22 GOAL #3: Transfer sit to/from stand min x 1 Goal to be met by: 11/04/22 GOAL #4: Transfer bed to/from chair min x 1 Goal to be met by: 11/04/22 GOAL #5: Improve BLE strength 4- to 4/5 Goal to be met by: 11/04/22 Penitentiary Goals GOAL #1: pt transfer sup to/from sit to/from stand CGA x 1 Goal to be met by: 11/06/22 GOAL #2: pt transfer bed to/from chair CGA x 1 Goal to be met by: 11/06/22 GOAL #3: pt amb 20ft with rwx with min x 1 Goal to be met by: 11/06/22 Plan Plan of Care: Therapeutic EX, Therapeutic Activity Other:: transfer and gait training Frequency of Treatment: 1-2 X day, as tolerated Duration of Treatment: 5 days Anticipated Discharge Destination: undecided Treatment Diagnosis (ICD 10 Codes): impaired balance R26.81. gait difficulty R 26.2. knee pain. weakness M62.81 Has the Physician been added for Co-signature?: Yes
[2022-11-03 05:36] LABS: BASOPHILS % (AUTO) 0.1 % (0.0-3.0); HEMATOCRIT 37.4 % (37.0-47.0); HEMOGLOBIN 12.2 g/dl (12.0-16.0); IMMATURE GRANULOCYTE % (AUTO) 0.2 % (0.0-5.0); LYMPHOCYTES # (AUTO) 0.9 K/uL (0.60-3.4); MEAN CORPUSCULAR HEMOGLOBIN 30.6 pg (27.0-31.0); MEAN CORPUSCULAR HGB CONC 32.6 (31.8-35.4); MEAN CORPUSCULAR VOLUME 93.7 fl (81.0-99.0); MONOCYTES # (AUTO) 0.4 K/uL (0.4-2.0); MONOCYTES % (AUTO) 5.1 (0-10); NEUTROPHILS # (AUTO) 7.3 K/ul (2.0-6.9); NEUTROPHILS % (AUTO) 84.6 % (42.2-75.2); PLATELET COUNT 156 10^3/uL (140-440); RDW COEFFICIENT OF VARIATION 13.4 % (11.6-14.8); RED BLOOD COUNT 3.99 10^6/ul (4.20-5.40); WHITE BLOOD COUNT 8.66 K/ul (4.6-10.2)
[2022-11-03 05:37] LABS: PROTHROMBIN TIME 24.2 SEC (9.3-11.0)
[2022-11-03] MEDS: PEPCID PO SCH ×2 (05:37→16:42)
[2022-11-03 05:42] LABS: ALANINE AMINOTRANSFERASE 20.6 U/L (0-35); ALBUMIN 3.49 g/dL (3.5-5.0); ALKALINE PHOSPHATASE 130.3 U/L (53-141); ASPARTATE AMINO TRANSFERASE 28.3 U/L (14-36); BILIRUBIN,TOTAL 0.3 mg/dL (0.2-1.3); BLOOD UREA NITROGEN 18.6 mg/dL (7-17); CALCIUM 8.49 mg/dL (8.4-10.2); CARBON DIOXIDE 32.8 mmol/L (22-30.0); CHLORIDE 97.3 mmol/L (98-107); CREATININE 0.45 mg/dL (0.60-1.30); GLUCOSE 125.5 mg/dL (74-106); POTASSIUM 3.68 mmol/L (3.5-5.1); SODIUM 133.3 mmol/L (134.5-145); TOTAL PROTEIN 6.68 g/dL (6.3-8.2)
[2022-11-03] MEDS: CARDIZEM PO SCH ×2 (09:52→20:29)
[2022-11-03] MEDS: ZESTRIL PO SCH (09:53)
[2022-11-03] MEDS: K-DUR PO SCH ×3 (09:53→16:42)
[2022-11-03] MEDS: FERROUS SULFATE PO SCH ×2 (09:53→20:29)
[2022-11-03] MEDS: LIPITOR PO SCH (09:53)
[2022-11-03] MEDS: LANOXIN PO SCH (09:55)
[2022-11-03] MEDS: COREG PO SCH ×2 (09:55→16:43)
[2022-11-03] MEDS: ULTRAM PO PRN (10:00)
--- NOTE | 2022-11-03 14:14 | RS.OTINEVL ---
Subjective - Patient information Date of Evaluation: 11/03/22 Date of Arrival on Unit: 11/01/22 Admitted From:: Home Diagnosis: SOB, Leg edema, L knee pain PRECAUTIONS: Weak in legs Usual Living Arrangement: With Spouse Living Arrangement Comments: pt lives with elderly spouse. pt's son comes several times a day to transfer her. Home Environment: House Medical History: Hypertension, CHF, Arthritis, Cancer (breast CA) Medical History Comments:: pulmonary HTN, Afib, mitral valve regurgitation, dilated cardiomyopathy, ataxia, R ventricular hypertrophy Surgical History: Hip Replacement, Shoulder Replacement, Tonsillectomy, Hysterectomy Surgical History Comments:: appey Medications: see chart Subjective Information/ Patient Comments:: "I am not a candidate for knee surgery." - Level of function Prior to this admission, the patient could do the following:: Independent ADL's, Independent Ambulation Abilities prior to this admission: Pt living at home and was able to transfer. Pt was able to do for herself. Current Level of Function: Partially Dependent Current Equipment Used at Home: wheelchair, walker, Pain Assessment - Pain Pain Score: 5 Side: left Pain Location Body Site: Knee Pain Aggravating Factors: Standing Pain Alleviating Factors: Medication Interventions - Objective Patient Orientation: Person, Place, Situation Current Interventions: IV's, Telemetry Observation: Pt appears weak and is able to transfer from EOB with RW to chair with moderate assistance. Interventions - ROM Right Upper Extremity AROM: Slight limitation Left Upper Extremity AROM: Slight limitation - Strength Right Upper Extremity Strength: Mild Weakness Left Upper Extremity Strength: Mild Weakness - Sensation Right Upper Extremity Sensation: Intact/Normal Left Upper Extremity Sensation: Intact/Normal Balance - Sitting Balance Static Sitting Balance: Good Dynamic Sitting Balance: Good - Standing Balance Static Standing Balance: Poor Dynamic Standing Balance: Poor ADL Skills - Self Feeding Self Feeding: Independent - Grooming Grooming: Independent Grooming Set-up: Sitting - Dressing Dressing UE: Min Assist Dressing LE: Max Assist - Toilet Management Toilet Hygiene: Min Assist Toilet Clothing Management: Min Assist Functional Mobility - Bed Mobility Supine to Sit: Independent - Transfers Sit to Stand: Mod Assist Stand to Sit: Mod Assist Stand Pivot Transfers: Mod Assist - Ambulation Weight Bearing Status: FWB Assistive Device Used: Rolling Walker Assistance needed with Ambulation: Mod Assist GLORIA INDEX SCORE: . Additional Treatment Performed - Additional units charged ADL: 15 - Time with patient Length of Evaluation: 17 Total treatment time: 32 Activities Do you enjoy playing games?: Yes Would you be interested in leaving your room for activities?: Yes Would you enjoy group activities?: Yes Do you have difficulty with your vision?: No What types of things do you enjoy doing? Any Hobbies?: word search Patient Interests:: Watching Television, Puzzles/Games Patient Education Patient Education: Home Exercise Program, Home Safety, Education of Plan of Care Teaching Recipient: Patient Teaching Methods: Teach Back Method Used, Discussion Assessment Problem List:: Decreased level of function, Requires training/education, Decreased safety/Risk of falls, Weakness, Pain limits previous level of function Rehab Potential: Good Further Therapy Indicated?: Yes Evaluation Complexity: HISTORY: Medium, EXAM OF BODY SYSTEMS: Medium, CLINICAL DECISION MAKING: Medium Patient's Goal(s): To get stronger and be able to transfer so she can go home. Short Term Goals - Goals GOAL 1: Pt to tolerate sink level ADLS with min A. Goal to be met by: 11/05/22 GOAL 2: Pt to increase dyn. std. bal. to Fair+. Goal to be met by: 11/05/22 GOAL 3: Pt to increase activity tolerance to 10 minutes with rests PRN. Goal to be met by: 11/05/22 Spiritual Care Coordinator Goals GOAL 1: Pt to be (I) with sink level ADLS. Goal to be met by: 11/09/22 GOAL 2: Pt to increase dyn. std. bal. to G-. Goal to be met by: 11/09/22 GOAL 3: Pt to tolerate 15 minutes of activity with rests PRN. Goal to be met by: 11/09/22 Plan Plan of Care: Therapeutic EX, Therapeutic Activity, Self-Care/Home Management Frequency of Treatment: 1-2 X day, as tolerated Duration of Treatment: 1 Week Anticipated Discharge Destination: Spirit[facility] Coordinator Care Facility Treatment Diagnosis (ICD 10 Codes): Weakness R53.1, Z74.1 Need for assistance with personal care. Has the Physician been added for Co-signature?: Yes
[2022-11-03] MEDS ORDERED: COUMADIN PO SCH (17:00)
[2022-11-04] MEDS: ULTRAM PO PRN (00:26)
[2022-11-04 04:54] VITALS: BP 148/82; TEMP 97.6
[2022-11-04 05:16] LABS: ALANINE AMINOTRANSFERASE 21.2 U/L (0-35); ALBUMIN 3.5 g/dL (3.5-5.0); ALKALINE PHOSPHATASE 153.6 U/L (53-141); ASPARTATE AMINO TRANSFERASE 28.5 U/L (14-36); BILIRUBIN,TOTAL 0.57 mg/dL (0.2-1.3); CALCIUM 8.4 mg/dL (8.4-10.2); CARBON DIOXIDE 30.1 mmol/L (22-30.0); CHLORIDE 96.7 mmol/L (98-107); CREATININE 0.41 mg/dL (0.60-1.30); GLUCOSE 101.8 mg/dL (74-106); POTASSIUM 3.99 mmol/L (3.5-5.1); SODIUM 130.5 mmol/L (134.5-145); TOTAL PROTEIN 6.68 g/dL (6.3-8.2)
[2022-11-04 05:17] LABS: BASOPHILS % (AUTO) 0.1 % (0.0-3.0); EOSINOPHILS % (AUTO) 0.2 % (0.0-7.0); HEMATOCRIT 40.1 % (37.0-47.0); HEMOGLOBIN 13.2 g/dl (12.0-16.0); IMMATURE GRANULOCYTE % (AUTO) 0.2 % (0.0-5.0); LYMPHOCYTES # (AUTO) 1.7 K/uL (0.60-3.4); LYMPHOCYTES % (AUTO) 19.4 (10.0-50.0); MEAN CORPUSCULAR HEMOGLOBIN 30.3 pg (27.0-31.0); MEAN CORPUSCULAR HGB CONC 32.9 (31.8-35.4); MEAN CORPUSCULAR VOLUME 92.2 fl (81.0-99.0); MONOCYTES # (AUTO) 0.6 K/uL (0.4-2.0); MONOCYTES % (AUTO) 7.2 (0-10); NEUTROPHILS # (AUTO) 6.4 K/ul (2.0-6.9); NEUTROPHILS % (AUTO) 72.9 % (42.2-75.2); PLATELET COUNT 174 10^3/uL (140-440); RDW COEFFICIENT OF VARIATION 13.5 % (11.6-14.8); RED BLOOD COUNT 4.35 10^6/ul (4.20-5.40); WHITE BLOOD COUNT 8.76 K/ul (4.6-10.2)
[2022-11-04] MEDS: LASIX TAB PO SCH (05:34)
[2022-11-04] MEDS: PEPCID PO SCH (05:34)
[2022-11-04] MEDS ORDERED: ZOFRAN 4 MG/2 ML IVP PRN (08:10)
[2022-11-04] MEDS ORDERED: COREG PO SCH (08:30)
[2022-11-04] MEDS ORDERED: MICRO-K CAP PO SCH (08:30)
[2022-11-04] MEDS: LIPITOR PO SCH (08:36)
[2022-11-04] MEDS: FERROUS SULFATE PO SCH (08:37)
[2022-11-04] MEDS: CARDIZEM PO SCH (08:37)
[2022-11-04] MEDS: LANOXIN PO SCH (08:37)
[2022-11-04] MEDS: ZESTRIL PO SCH (08:37)
--- NOTE | 2022-11-04 09:36 | PCM.PROG ---
Attending Provider: ATTENDING PROVIDER: Dr. SUSANA ROJAS APRN This patient is seen with Susana Rojas, Nurse Practitioner. DATE OF SERVICE: 11/04/22 SUBJECTIVE: This 77 year old /WHITE F was hospitalized 11/01/22. The patient started with therapy. Yesterday left knee pain slightly improved. Leg edema improved along with shortness of breath. INR 1.7. She has been doing well and is ready for discharge to [place] today. REVIEW OF SYSTEMS: CONSTITUTIONAL: General weakness. No night sweats. No fatigue, malaise, lethargy. No fever or chills. HEENT: Eyes: No visual changes. No eye pain. No eye discharge. ENT: No runny nose. No epistaxis. No sinus pain. No odynophagia. No congestion. RESPIRATORY: No cough, no congestion. No hemoptysis. Shortness of breath. CARDIOVASCULAR: No angina symptoms. No CHF symptoms. No atypical chest pain for CAD. No palpitations. No orthopnea.. GASTROINTESTINAL: No abdominal pain. No nausea or vomiting. No diarrhea or constipation. No hematemesis. No hematochezia. GENITOURINARY: No urgency. No frequency. No dysuria. No hematuria. No obstructive symptoms. No discharge. No pain. No significant abnormal bleeding. MUSCULOSKELETAL: Left knee pain. No musculoskeletal pain; no joint swelling. NEUROLOGICAL: Awake, alert, oriented to time, place and person. No headache. No neck pain. No syncope. No seizures. No dizziness. PSYCHIATRIC: Not anxious. No depression. No suicidal thoughts. No homicidal thoughts. SKIN: No rash. No lesions. No wounds. ENDOCRINE: No unexplained weight loss. No weight gain. HEMATOLOGIC/LYMPHATIC: No anemia. No purpura. No petechiae. No prolonged or excessive bleeding. No palpable lymph nodes. PHYSICAL EXAMINATION: GENERAL: The patient is awake, alert and oriented, lying/sitting in bed in no distress. VITAL SIGNS: Temperature 97.6 F, Pulse 92, Respiratory Rate 19, BP 148/82, Pulse Ox 96% HEENT: Head normocephalic, atraumatic. Eyes: Extraocular muscles are intact. Pupils are equal, round and reactive to light and accommodation. Ears: No lesions. Nose appeared normal. Throat: No exudate or erythema. NECK: Supple. No JVD, no carotid bruit. No lymphadenopathy or thyromegaly. LUNGS: Diminished breath sounds. Clear to auscultation. Percussion note justin l. Chest symmetrical. HEART: Irregular heart rate. S1, S2, no S3. No murmurs. No cyanosis or cl ubbing. No ascites. Pulses: Dorsalis pedis and posterior tibial pulses +1 to +2 both sides. ABDOMEN: Soft. Non-tender. Bowel sounds active. No CVA tenderness. No mass felt. EXTREMITIES: Left knee effusion. Trace pedal edema. Full range of motion of all extremities, equal. NEUROLOGIC: No focal deficit. Cranial nerves II through XII are grossly intact. No headache. No double vision. SKIN: Not dry. Intact. Turgor-normal. LYMPHATIC: No palpable lymph nodes/no lymphedema. MUSCULOSKELETAL: Normal joints with no swelling. Muscle tone is normal. LAB REVIEW: 11/04/22 04:57 11/04/22 04:51 11/04/22 04:57: WBC 8.76, RBC 4.35, Hgb 13.2, Hct 40.1, MCV 92.2, MCH 30.3, MCHC 32.9, RDW Coeff of [place] 13.5, Plt Count 174, Immature Gran % (Auto) 0.2, Neut % (Auto) 72.9, Lymph % (Auto) 19.4, [place] % (Auto) 7.2, Eos % (Auto) 0.2, Baso % (Auto) 0.1, Neut # (Auto) 6.4, Lymph # (Auto) 1.7, [place] # (Auto) 0.6, Eos # (Auto) 0.0, Baso # (Auto) 0.0, Immature Gran # (Auto) 0.0 11/04/22 04:51: Sodium 130.5 L, Potassium 3.99, Chloride 96.7 L, Carbon Dioxide 30.1 H, Anion Gap 7.69, BUN 15.0, Creatinine 0.41 L, Estimated GFR (MDRD) 150.00, BUN/Creatinine Ratio 36.58, Glucose 101.8, Calcium 8.40, Total Bilirubin 0.57, AST 28.5, ALT 21.2, Alkaline Phosphatase 153.6 H, Total Protein 6.68, Albumin 3.50, Globulin 3.18, Albumin/Globulin Ratio 1.10 11/04/22 04:51: PT 18.0 H D, INR 1.78 ASSESSMENT: Please see below. 1. Shortness of breath. 2. Leg edema. 3. Atrial fibrillation. 4. Left knee osteoarthritis with effusion. PLAN: 1. Discharge to [place]. 2. Repeat CBC, CMP. 3. INR in one week then every two weeks. 4. PT/OT at the correction. 5. Fall precautions. Plan and coordination of the patient's care discussed in the presence of Pulp Screen Operator and nurse. CONDITION: Stable TIME SPENT: 35 MINUTES SCRIBED BY: Jemima DÍAZ scribed while in presence of service performed by Susana Rojas APRN on 11/04/22 ([id number])
--- NOTE | 2022-11-04 10:13 | DS ---
DATE OF SERVICE: 11/04/22 FINAL DIAGNOSIS: 1. SHORTNESS OF BREATH 2. LEG EDEMA 3. ATRIAL FIBRILLATION 4. LEFT KNEE OSTEOARTHRITIS WITH EFFUSION DISCHARGE INSTRUCTIONS: Discharge to [facility] today per Susana Feliz NP and Dr. Rangel. Dr. Rangel/Susana Feliz NP and Gavin Peterson NP to follow patient at retirement. LABS: 1. PT/INR in one week then every two weeks thereafter. 2. CBC/CMP in one week. MEDICATIONS AT DISCHARGE: Atorvastatin 10 mg p.o. daily Carvedilol 12.5 mg - see Rx instructions Digoxin 125 mcg p.o. daily Diltiazem 60 mg p.o. b.i.d. Famotidine (Pepcid) 20 mg p.o. b.i.d. Ferrous Sulfate 325 mg p.o. b.i.d. Lasix 40 mg p.o. q.other day Lisinopril 5 mg p.o. daily Warfarin 5 mg p.o. 1700 NEW PRESCRIPTIONS: Zofran 4 mg (take every 6 hours as needed for nausea) Potassium Chloride 10 mEq (take daily) Tramadol 50 mg (take three times a day as needed, Rx sent) DISCONTINUED MEDICATIONS: Tramadol 50 mg p.o. b.i.d. p.r.n. DIET INSTRUCTIONS: Resume regular diet. ACTIVITY: Advance activity as tolerated with use of walker or other assistive device. SMOKING: N/A DISEASE SPECIFIC EDUCATION: Medications Activity Followup Diet HOSPITAL COURSE: 77-year-old /White female was admitted directly from our office with worsening leg edema and shortness of breath. Left knee pain had worsened to the point she was unable to walk. She had been seen by Ortho and not a candidate for surgery. Urinalysis and chest x-ray normal. Dr. Rangel did echocardiogram. We increased Tramadol to 3 times a day for knee pain. We gave IV Lasix. Leg edema and shortness of breath significantly improved. The patient started with PT/OT yesterday and is willing to work on regaining mobility. She has agreed to go to [facility] for PT/OT. INR high on 11/02/22 so Coumadin was held. It is therapeutic today at 1.7. She is to continue Coumadin daily, will recheck in one week at [facility]. We will discharge in stable condition. Will continue to follow with her at retirement. TIME SPENT: 70 minutes MARY
--- NOTE | 2022-11-04 15:22 | PN ---
DATE OF SERVICE: 11/03/22 SUBJECTIVE: 77 year old white female hospitalized with shortness of breath with leg edema and left knee pain. Patient says that she is feeling a whole lot better than yesterday and at the present time the leg edema has practically subsided. She has less shortness of breath. REVIEW OF SYSTEMS: CONSTITUTIONAL: No fever or chills. HEENT: Eyes: No visual changes. No eye pain. No eye discharge. ENT: No runny nose. No epistaxis. No sinus pain. No sore throat. No odynophagia. No congestion. RESPIRATORY: No cough, no congestion. No hemoptysis. No shortness of breath. CARDIOVASCULAR: No chest pain. No palpitations. No PND. No orthopnea. GASTROINTESTINAL: No abdominal pain. No nausea or vomiting. No diarrhea or constipation. No hematemesis. No hematochezia. GENITOURINARY: No urgency. No frequency. No dysuria. No hematuria. No obstructive symptoms. No discharge. No pain. No significant abnormal bleeding. MUSCULOSKELETAL: No musculoskeletal pain; no joint swelling. NEUROLOGICAL: No headache. No neck pain. No syncope. No seizures. No dizziness. PSYCHIATRIC: Not anxious. No depression. No suicidal thoughts. No homicidal thoughts. SKIN: No rash. No lesions. No wounds. ENDOCRINE: No unexplained weight loss. No weight gain. HEMATOLOGIC/LYMPHATIC: No anemia. No purpura. No petechiae. No prolonged or excessive bleeding. No palpable lymph nodes. PHYSICAL EXAMINATION: GENERAL: The patient is in no distress. VITAL SIGNS: Temperature 97.5, pulse 80, respiratory rate 18, blood pressure 127/65, pulse ox 97% HEENT: Head normocephalic, atraumatic. Eyes: Extraocular muscles are intact. Pupils are equal, round and reactive to light and accommodation. Ears: No lesions. Nose appeared normal. Throat: No exudate or erythema. NECK: Supple. LUNGS: Decreased breath sounds with good air entry. HEART: S1, S2, no S3. ABDOMEN: Soft. EXTREMITIES: Leg pain is much less. No pedal edema. NEUROLOGIC: No focal deficit. Cranial nerves II through XII are grossly intact. No headache. No double vision. SKIN: Not dry. Intact. Turgor - normal. LYMPHATIC: No palpable lymph nodes/no lymphedema. MUSCULOSKELETAL: Normal joints with no swelling. Muscle tone is normal. LABS: Hemoglobin 12.2, hematocrit 37, WBC 8,600, normal differential, creatinine 0.4, BUN 18, potassium 3.6, troponin negative. ASSESSMENT: 1. Shortness of breath a lot better 2. Fluid retention status has subsided. Leg edema is practically resolved 3. Left arthritic knee pain is already under control Patient had an echocardiogram done which is practically unchanged with markedly enlarged LA cavity but normal LV contractility and LV size. Continue Lisinopril, potassium supplement, Lanoxin, Propranolol, Pravastatin. Condition: Stable TIME SPENT: More than 35 minutes. Plan and coordination of the patient's care discussed in the presence of nurse. MARY
[2022-11-04] MEDS ORDERED: COUMADIN PO SCH (17:00)
--- NOTE | 2022-11-06 10:45 | PN ---
DATE OF SERVICE: 11/04/22 SUBJECTIVE: Patient was seen with the nurse practitioner present. Patient's condition is stable. Her shortness of breath is a lot less. Condition at time of discharge was stable. REVIEW OF SYSTEMS: CONSTITUTIONAL: No night sweats. No fatigue, malaise, lethargy. No fever or chills. HEENT: Eyes: No visual changes. No eye pain. No eye discharge. ENT: No runny nose. No epistaxis. No sinus pain. No sore throat. No odynophagia. No congestion. RESPIRATORY: No cough, no congestion. No hemoptysis. No shortness of breath. CARDIOVASCULAR: No angina symptoms. No CHF symptoms. No atypical chest pain for CAD. No palpitations. No PND. No orthopnea. GASTROINTESTINAL: No abdominal pain. No nausea or vomiting. No diarrhea or constipation. No hematemesis. No hematochezia. GENITOURINARY: No urgency. No frequency. No dysuria. No hematuria. No obstructive symptoms. No discharge. No pain. No significant abnormal bleeding. MUSCULOSKELETAL: No musculoskeletal pain; no joint swelling. NEUROLOGICAL: No headache. No neck pain. No syncope. No seizures. No dizziness. PSYCHIATRIC: Not anxious. No depression. No suicidal thoughts. No homicidal thoughts. SKIN: No rash. No lesions. No wounds. ENDOCRINE: No unexplained weight loss. No weight gain. HEMATOLOGIC/LYMPHATIC: No anemia. No purpura. No petechiae. No prolonged or excessive bleeding. No palpable lymph nodes. PHYSICAL EXAMINATION: GENERAL: The patient is in no distress. HEENT: Head normocephalic, atraumatic. Eyes: Extraocular muscles are intact. Pupils are equal, round and reactive to light and accommodation. Ears: No lesions. Nose appeared normal. Throat: No exudate or erythema. NECK: Supple. No JVD, no carotid bruit. No lymphadenopathy or thyromegaly. LUNGS: Clear to auscultation. Percussion note normal. Chest symmetrical. HEART: S1, S2, no S3. No murmurs. No cyanosis or clubbing. No ascites. Pulses: Dorsalis pedis and posterior tibial pulses +1 to +2 bilaterally. ABDOMEN: Soft. Nontender. Bowel sounds active. No CVA tenderness. No mass felt. EXTREMITIES: No edema. Full range of motion of all extremities, equal. NEUROLOGIC: No focal deficit. Cranial nerves II through XII are grossly intact. No headache. No double vision. SKIN: Not dry. Intact. Turgor - normal. LYMPHATIC: No palpable lymph nodes/no lymphedema. MUSCULOSKELETAL: Normal joints with no swelling. Muscle tone is normal. TIME SPENT: More than 35 minutes. Plan and coordination of the patient's care discussed in the presence of nurse. MARY
--- NOTE | 2022-11-06 10:46 | PN ---
11/01/22 LEVEL 5 11/02/22 INTERMEDIATE 11/03/22 INTERMEDIATE 11/04/22 DISCHARGE MTDD
--- NOTE | 2022-11-08 10:05 | ECHO2D ---
Date of Exam: 11/03/2022 Ordering Physician: DR. JOSE GONZALEZ Room #: 105 Reason for Echo: SOB, DILATED CARDIOMYOPATHY, ATRIAL FIBRILLATION M-Mode Normal Adult Results LV Dimensions Normal Adult Results AoV Opening excursions >1.6 >1.6 LVEDD-base- 3.5-5.8 4.9 Ao root dimensions 2.0-3.7 3.0 LVESD-base- 3.1-4.6 L. Atrium dimensions 1.9-3.8 4.8 Post. Wall thickness 0.8-1.1 1.1 IV septum (thickness) 0.7-1.2 1.1 Post. Wall excursion 0.72-1.3 NORMAL Septal motion NORMAL Systolic motion R. Ventricular cavity 1.5-2.0 3.0 LVEF 60% 55% Paradoxical septal wall motion NORMAL 2-D : CALCIFIC MITRAL VALVE ANNULUS--NORMAL LEFT VENTRICLE CONTRACTILITY--NORMAL AORTIC AND TRICUSPID VALVES--NO EFFUSION, NO THROMBUS, ENLARGED LEFT ATRIAL AND RIGHT VENTRICLE CAVITIES M-MODE: MV: CALCIFIC MITRAL VALVE ANNULUS AV: NORMAL TV: NORMAL PV: CHAMBER SIZE: ENLARGED LEFT ATRIAL AND RIGHT VENTRICLE CAVITIES WALL MOTION: NORMAL PERICARDIUM: NORMAL INTERPRETATION: 1. ENLARGED RIGHT VENTRICLE AND LEFT ATRIAL CAVITIES 2. CALCIFIC MITRAL VALVE ANNULUS 3. NORMAL LEFT VENTRICLE CONTRACTILITY--EJECTION FRACTION 55%, LEFT VENTRICLE SIZE NORMAL 4. VALVES--NORMAL MTDD
== END 2022-11-04 11:00 | DRG 204 ==
LOC: LAB 13:54 → MEDSURG A 15:40
PROVIDERS: ADMIT Internal Medicine; ATTEND Internal Medicine
DX: Z79.01 Long term (current) use of anticoagulants; Z51.81 Encounter for therapeutic drug level monitoring; E87.6 Hypokalemia; I48.91 Unspecified atrial fibrillation; D64.9 Anemia, unspecified; R22.43 Localized swelling, mass and lump, lower limb, bilateral; M17.12 Unilateral primary osteoarthritis, left knee; R06.02 Shortness of breath; E78.5 Hyperlipidemia, unspecified; M54.50 Low back pain, unspecified; R53.1 Weakness; Z79.899 Other long term (current) drug therapy; M25.562 Pain in left knee; E53.8 Deficiency of other specified B group vitamins; R27.0 Ataxia, unspecified; Z74.1 Need for assistance with personal care; Z87.81 Personal history of (healed) traumatic fracture

== ENCOUNTER 2023-08-11 11:13 | Inpatient (IN) ==
--- NOTE | 2023-08-11 11:20 | ED.PDOC ---
General ED Provider: Dr. DONALD ADAMS MD Chief Complaint: Respiratory Complaint Stated Complaint: Patient with a history of hypertension, dilated cardiomyopathy, chronic atrial fibrillation, mitral regurgitation, chronic anticoagulation Coumadin 5 mg daily complains of shortness of breath at rest worse upon exertion with orthopnea. Patient denies chest pain, fever. Patient complains of a persistent nonproductive productive cough and recent diagnosis of COVID 5 days ago. Time Seen by Provider: 08/11/23 11:17 Mode of Arrival: Ambulance Information Source: Patient Exam Limitations: Clinical condition Primary Care Provider: JOSE RANGEL MD Nursing and Triage Documentation Reviewed and Agree: Yes What is Opioid Naive?: *Opioid Naive implies the patient is not already taking opioids or not chronically receiving opioids on a daily basis. *PRN dosing is not "usually" associated with tolerance. *Patients are at higher risk of over-sedation and aspiration. What is Opioid Tolerant?: *Opioid Tolerance implies less than the expected response to an opioid. *Acquired tolerance is defined by the patient taking 60mg of oral morphine daily (or equianalgesic dose of another opioid) for 1 week or more. *Often associated with chronic pain. *May take more than usual dose to achieve desired pain control. Review of Systems Review Of Systems Constitutional: Reports Chills, Fever, Malaise and Weakness Eyes: Reports No symptoms Ears, Nose, Mouth, Throat: Reports No symptoms and Ear pain Respiratory: Reports Cough, Orthopnea, Shortness of Breath, Wheezing and Other (Exertional dyspnea) Cardiac: Reports No symptoms, Chest pain and Edema GI: Reports No symptoms : Reports No symptoms Musculoskeletal: Reports No symptoms and Back pain Skin: Reports No symptoms and Bruising Neurological: Reports No symptoms Hematologic/Lymphatic: Reports No symptoms All Other Systems: Reviewed and Negative [facility] Medical History Bone fracture right shoulder fracture, reverse shoulder replacement. Dr. Terrazas 2012 Left hip repair, Dr. Rouse 01/01/18. T14.8XXA - Other injury of unspecified body region, initial encounter (ICD- 10) Uterine fibroid Patient was in her 40's. D25.9 - Leiomyoma of uterus, unspecified (ICD-10) Breast cancer, left lumpectomy performed, then chemo and radiation. Around 1998. C50.912 - Malignant neoplasm of unspecified site of left female breast (ICD- 10) Family History Mother Myocardial infarction FATHER No problems noted. SISTER No problems noted. SISTER Type 2 diabetes mellitus COPD (chronic obstructive pulmonary disease) SISTER Type 2 diabetes mellitus Cardiac disease BROTHER No problems noted. BROTHER No problems noted. SISTER Type 2 diabetes mellitus Social History Smoking and tobacco status: Never smoker Second hand smoke exposure: No Smoking risk assessment performed: No Alcohol intake: never Counseling given: No Substance use type: does not use Special julian needs: No Agree to transfusion: Yes Adopted: No Caregiver/support person: No Foster care: No Household members: spouse Housing: house Marital status: M Lives independently: Yes Daycare: no daycare Number of children: 2 service: No custodial: No Current occupational status: retired History of recent travel: No Sexually active: No Current gender identity: female Seatbelt use: always Helmet use: No Drives intoxicated or rides with intoxicated heavy truck driver: No Water heater temperature set < 120 degrees: Yes Working smoke detector in home: No Fire extinguisher in home: No Carbon monoxide detector in home: No Surgical History History of left hip replacement Z96.642 - Presence of left artificial hip joint (ICD-10) History of arthroplasty of right shoulder Z96.611 - Presence of right artificial shoulder joint (ICD-10) Status post tonsillectomy Very young when tonsils removed. Patient does not remember at what age. Z90.89 - Acquired absence of other organs (ICD-10) History of oophorectomy History of joint surgery (01/01/18) [facility] Dr. Rouse performed a closed left subtrochanteric Femur Fracutre. 2012 Right shoulder, reverse shoulder replacement. Dr. Terrazas Z98.890 - Other specified postprocedural states (ICD-10) Status post hysterectomy Z90.710 - Acquired absence of both cervix and uterus (ICD-10) Status post appendectomy Z90.49 - Acquired absence of other specified parts of digestive tract (ICD- 10) Female Reproductive History Menstrual Hx Hysterectomy: Yes Hx Tubal Ligation: Yes Interpretation EKG Interpretation EKG Interpretation By: ED Physician Time of EKG #1: 10:31 Rate: Arnel Rhythm: Other (Atrial fibrillation) Ectopy: None Rebecca: NL ST Segment: Other Interpretation: Atrial fibrillation ventricular sponsor 56 ST and T wave abnormality inferi Radiology Interpretation Radiology Interpretation By: Radiologist Radiology Results: Positive Exam Interpreted: Portable CXR Xray Comments: Consistent with small bilateral pleural effusions central venous pulmonary Physician Notification Case Discussed Physician Notified: Discussed with Dr. Alvino Rangel Time of Notification: 13:45 Comments: Discussed results of all laboratory data patient's progress was a result of the portable chest x-ray with recommendations to admit to the hospital service Physician Notified: Discussed with hospitalist Diana Time of Notification: 13:45 Comments: Recommendations for inpatient mission for treatment of congestive heart failure and pneumonia Critical Care Note Critical Care Note Total Critical Care Time (mins): 0 Course Course 08/11/23 11:41 08/11/23 11:41 Orders, Labs, Meds: Lab Review 08/11/23 08/11/23 11:14 11:41 WBC 4.88 RBC 4.34 Hgb 13.0 Hct 40.8 MCV 94.0 MCH 30.0 MCHC 31.9 RDW Coeff of [place] 13.0 Plt Count 121 L Immature Gran % (Auto) 0.0 Neut % (Auto) 77.2 H Lymph % (Auto) 11.7 [place] % (Auto) 10.9 H Eos % (Auto) 0.0 Baso % (Auto) 0.2 Neut # (Auto) 3.8 Lymph # (Auto) 0.6 [place] # (Auto) 0.5 Eos # (Auto) 0.0 Baso # (Auto) 0.0 Immature Gran # (Auto) 0.0 PT 37.5 H D INR 3.80 Puncture Site [employer] Base Excess 5.7 H O2 Saturation 96.5 ABG pH 7.54 H* ABG pCO2 33.0 L ABG pO2 75.0 L ABG HCO3 28.2 H ABG Total CO2 29.2 H Gian Test + Hemoglobin 1.3 Oxyhemoglobin 94.1 L Carboxyhemoglobin 2.0 H Total Hemoglobin 13.7 O2 Delivery Device Ra FiO2 % 21.0 Sodium 129.8 L Potassium 4.29 Chloride 93.6 L Carbon Dioxide 28.5 Anion Gap 11.99 BUN 27.3 H Creatinine 0.38 L Estimated GFR (MDRD) 164.00 BUN/Creatinine Ratio 71.84 Glucose 126.1 H Calcium 8.62 Magnesium 1.92 Total Bilirubin 0.77 AST 23.1 ALT 26.2 Alkaline Phosphatase 115.4 Troponin I < 0.012 NT-Pro-B Natriuret Pep 7150 H Total Protein 7.25 Albumin 3.63 Globulin 3.62 Albumin/Globulin Ratio 1.00 Digoxin 1.00 Orders Category Date Time Status ADMIT PATIENT INPATIENT .TO MEDSURG (NON-MONITORED ADMISSION 08/11/23 14:22 Ordered BED) ABG DRAW REQUEST Stat CARDIO 08/11/23 11:24 Completed EKG-(ED ONLY) Stat CARDIO 08/11/23 12:30 Completed NEBULIZER TREATMENT Stat CARDIO 08/11/23 13:36 Ordered Herbert [CATHETER INSERTION AND CARE] Q8HR CARE 08/11/23 12:03 Active REMINDER: Ask MD to d/c herbert DAILY CARE 08/11/23 12:04 Active Saline Lock [ED IV/MEDIPORT/POWERPORT] .ONCE EMERGENCY 08/11/23 11:24 Active ABG COOX Stat LAB 08/11/23 11:14 Completed BLOOD CULTURE (ED ONLY) Stat LAB 08/11/23 12:03 Received CBC W/ AUTO DIFF Stat LAB 08/11/23 11:41 Completed CMP [COMPREHENSIVE METABOLIC PANEL] Stat LAB 08/11/23 11:41 Completed DIGOXIN Stat LAB 08/11/23 11:41 Completed MAGNESIUM Stat LAB 08/11/23 11:41 Completed NT-PROBNP(ED) Stat LAB 08/11/23 11:41 Completed PROCALCITONIN Routine LAB 08/11/23 11:41 Received PT WITH INR Stat LAB 08/11/23 11:41 Completed TROPONIN I Stat LAB 08/11/23 11:41 Completed 0.9 % Sodium Chloride [Saline Flush] Meds 08/11/23 11:24 Active 1 syr IVF PRN PRN Ceftriaxone/D5w 1 gm Premix [Rocephin 1 gm/50 ml D5w] Meds 08/11/23 11:27 Discontinued 1 gm in 50 ml IV ONCE Furosemide [Lasix] Meds 08/11/23 11:24 Discontinued 40 mg IVP ONCE STA Ipratropium/Albuterol Neb [Duoneb] Meds 08/11/23 13:36 Discontinued 3 ml NEB ONCE STA Methylprednisolone Sod Succ/Pf [Solu-Medrol 125 mg] Meds 08/11/23 11:29 Discontinued 125 mg IVP ONCE ONE CHEST, 1V AP ONLY Stat RADS 08/11/23 11:27 Completed Medications Generic Name Dose Route Start Last Admin Trade Name Freq PRN Reason Stop Dose Admin Sodium Chloride 1 syr 08/11/23 11:24 0.9% Sodium Chloride 10 Ml Disp.Syrin IVF PRN PRN To flush IV Discontinued Medications Generic Name Dose Route Start Last Admin Trade Name Freq PRN Reason Stop Dose Admin Albuterol/Ipratropium 3 ml 08/11/23 13:36 Ipratropium/Albuterol Vial.Neb NEB 08/11/23 13:37 ONCE STA Furosemide 40 mg 08/11/23 11:24 08/11/23 11:56 Furosemide Inj 40 Mg/4 Ml Vial IVP 08/11/23 11:25 40 mg ONCE STA Administration CEFTRIAXONE/D5W 1 GM PREMIX 1 gm in 50 mls @ 100 mls/hr 08/11/23 11:27 08/11/23 11:58 Rocephin 1 Gm/50 Ml D5w IV 08/11/23 11:56 100 mls/hr ONCE ONE Administration Methylprednisolone Sodium Succinate 125 mg 08/11/23 11:29 08/11/23 11:56 Methylprednisolone Sod Succ/Pf 125 Mg/2 Ml Vial IVP 08/11/23 11:30 125 mg ONCE ONE Administration Vital Signs: Temp Pulse Resp BP Pulse Ox 08/11/23 11:17 97.8 F 70 20 126/63 90 L Discharge Plan Discharge Patient Disposition: ADMITTED INPATIENT Discharge Problem: Pneumonia due to 2019 novel coronavirus, Acute dyspnea Acute congestive heart failure Qualifiers: Heart failure type: diastolic Qualified Code(s): I50.31 - Acute diastolic (congestive) heart failure Prescriptions: No Action carvedilol 12.5 mg tablet See Rx Instructions .ROUTE .COMPLEX Qty: 180 1RF Dose Instruction: TAKE ONE TABLET TWICE DAILY WITH MEALS Rx Instructions: TAKE ONE TABLET TWICE DAILY WITH MEALS digoxin 125 mcg (0.125 mg) tablet 125 mcg PO DAILY Qty: 90 1RF Rx Instructions: only 5 days/wk diltiazem HCl 60 mg tablet 60 mg PO BID acetaminophen [Aphen] 325 mg tablet 650 mg PO Q6H PRN (Reason: fever or pain) loperamide [Anti-Diarrheal (loperamide)] 2 mg capsule 2 mg PO Q12H PRN (Reason: diarrhea) famotidine [Pepcid] 20 mg Tablet 20 mg PO BID tramadol 50 mg Tablet 50 mg PO TID PRN (Reason: Pain) Qty: 30 0RF ondansetron 4 mg Tablet,Disintegrating 4 mg PO Q6H PRN (Reason: Nausea And Vomiting) Qty: 15 0RF warfarin 5 mg Tablet 5 mg PO 1700 potassium chloride 10 mEq Capsule, Extended Release 20 meq PO DAILY furosemide [Lasix] 40 mg tablet 40 mg PO Q OTHER DAY Qty: 90 1RF ferrous sulfate [iron] 325 mg (65 mg iron) tablet 325 mg PO BID Qty: 180 1RF atorvastatin 10 mg tablet 10 mg PO DAILY Qty: 90 1RF lisinopril 5 mg tablet 5 mg PO DAILY Qty: 90 1RF Did you review [place] AFF[employer]ATE MARKETING COORDINATOR for ALL controlled substances?: Not Applicable ED Provider: DONALD ADAMS Condition: Stable Physician Progress Note: History obtained from the patient paramedics who complains of being diagnosed with COVID 5 days ago complains of persistent dyspnea, dyspnea on exertion and orthopnea. Patient complains of a nonproductive cough fever chills arthralgia. Patient denies chest pain. Patient is presently on anticoagulation Coumadin 5 mg daily And arterial blood gas was obtained on room air which is consistent with a pH- 7.5, CO2-33, pO2-75, O2 saturation-94% Patient placed on 2 L O2 nasal cannula and administered DuoNeb aerosol treatment, Solu-Medrol 120 mg IV, and antibiotic Rocephin 1 g IV piggyback after 2 sets of blood culture obtained. Patient ministered Lasix 40 mg IV Portable chest x-ray is consistent with small bilateral pleural effusions, central pulmonary vascular congestion, interstitial prominence bibasilar. Laboratory data the days levels 1.0, BNP is 7000 156, troponin 0.012, the CBC is not normal limits and the BNP is within normal limits, GFR 126 Herbert catheter insertion patient diuresis for mL of urine Patient given a 2nd DuoNeb aerosol treatment Herbert catheter insertion with 1 mL of urine. Differential diagnosis: 1) acute congestive heart failure 2) pneumonia Discussed with Dr. Deni Rangel at 1345 with recommendation for inpatient mission to the hospital service []
[2023-08-11] MEDS ORDERED: LASIX IVP STA (11:24)
[2023-08-11] MEDS ORDERED: ROCEPHIN 1 GM/50 ML D5W 1 GM/50 ML BAG IV ONE (11:27)
[2023-08-11] MEDS ORDERED: SOLU-MEDROL 125 MG IVP ONE (11:29)
[2023-08-11 11:37] LABS: ABG O2 HGB 94.1 % (95-100); BEecf 5.7 (-2.0-3.0); HCO3 28.2 (21-28); MetHb 1.3 (0-1.5); TCO2 29.2 (19-24); sO2 96.5 % (94-98); tHb 13.7 g/dl (11.7-17.4)
[2023-08-11 11:38] LABS: ABG PH 7.54 (7.35-7.45)
[2023-08-11 11:50] LABS: BASOPHILS % (AUTO) 0.2 % (0.0-3.0); HEMATOCRIT 40.8 % (37.0-47.0); LYMPHOCYTES # (AUTO) 0.6 K/uL (0.60-3.4); LYMPHOCYTES % (AUTO) 11.7 (10.0-50.0); MEAN CORPUSCULAR HGB CONC 31.9 (31.8-35.4); MONOCYTES # (AUTO) 0.5 K/uL (0.4-2.0); MONOCYTES % (AUTO) 10.9 (0-10); NEUTROPHILS # (AUTO) 3.8 K/ul (2.0-6.9); NEUTROPHILS % (AUTO) 77.2 % (42.2-75.2); PLATELET COUNT 121 10^3/uL (140-440); RED BLOOD COUNT 4.34 10^6/ul (4.20-5.40); WHITE BLOOD COUNT 4.88 K/ul (4.6-10.2)
[2023-08-11 12:05] LABS: ALANINE AMINOTRANSFERASE 26.2 U/L (0-35); ALBUMIN 3.63 g/dL (3.5-5.0); ALKALINE PHOSPHATASE 115.4 U/L (53-141); ASPARTATE AMINO TRANSFERASE 23.1 U/L (14-36); BILIRUBIN,TOTAL 0.77 mg/dL (0.2-1.3); BLOOD UREA NITROGEN 27.3 mg/dL (7-17); CALCIUM 8.62 mg/dL (8.4-10.2); CARBON DIOXIDE 28.5 mmol/L (22-30.0); CHLORIDE 93.6 mmol/L (98-107); CREATININE 0.38 mg/dL (0.60-1.30); GLUCOSE 126.1 mg/dL (74-106); MAGNESIUM 1.92 mg/dL (1.6-2.3); POTASSIUM 4.29 mmol/L (3.5-5.1); SODIUM 129.8 mmol/L (134.5-145); TOTAL PROTEIN 7.25 g/dL (6.3-8.2)
--- NOTE | 2023-08-11 12:14 | DI ---
EXAM: CHEST, SINGLE VIEW HISTORY: Dyspnea COMPARISON: 11/01/2022 IMPRESSION: Cardiomediastinal contours appear enlarged and stable. There is central pulmonary vascu lar congestion. Interstitial prominence within both lungs is basilar predominant. This may reside a telectasis, pulmonary edema and/or pneumonia. Small bilateral pleural effusions. No pneumothorax.
[2023-08-11 12:17] LABS: TROPONIN I < 0.012 ng/ml (0.0000-0.120)
[2023-08-11 12:23] LABS: PROTHROMBIN TIME 37.5 SEC (9.3-11.0)
[2023-08-11] MEDS ORDERED: DUONEB NEB STA (13:36)
[2023-08-11] MEDS ORDERED: ZOFRAN 4 MG/2 ML IVP PRN (15:00)
[2023-08-11] MEDS ORDERED: TYLENOL PO PRN (15:00)
[2023-08-11] MEDS ORDERED: DUONEB NEB PRN (15:02)
--- NOTE | 2023-08-11 15:25 | PCM ---
Date of Service Date Seen by Provider: 08/11/23 Time Seen by Provider: 14:30 Admit Day/Time Admission Date: 08/11/23 Admission Time: 14:22 Reason for Admission Chief Complaint: COVID, PNEUMONIA, ACUTE CHF Hospital Provider Hospital Provider: GOLDEN TRAVIS PA-C, [facility] Primary Care Physician Primary Care Physician: JOSE RANGEL MD History of Present Illness History of Present Illness: Patient is a 78 year old female with pmhx of heart failure, a fib, dilated cardiomyopathy, hyperlipidemia, history of breast cancer, b12 deficiency, pulmonary hypertension, gerd, who presented to the ER with worsening covid symptoms. Patient tested positive for covid on 08/09. She states symptoms started about 5-6 days ago. She has progressively worsened with her breathing. She feels very weak. She was noted to have O2 saturation of 90%, placed on 2L. BNP elevated. CXR showing fluid overload. She was given rocephin, solumedrol, lasix, and duoneb in ER. Pt has conversational dyspnea. Snyder was placed in ER and already showing good output. INR noted to be mildly elevated at 3.8. She will be admitted for further management. Discussed her covid diagnosis and risks vs benefits of remdesivir. Pt decided not to treat with remdesivir. She is agreeable to dexamethasone at this time. Case Discussed With Case Discussed With: Patient's case was discussed with the ER Physicians, Dr. Bertrand. [facility] Medical History Bone fracture right shoulder fracture, reverse shoulder replacement. Dr. Terrazas 2012 Left hip repair, Dr. Rouse 01/01/18. T14.8XXA - Other injury of unspecified body region, initial encounter (ICD- 10) Uterine fibroid Patient was in her 40's. D25.9 - Leiomyoma of uterus, unspecified (ICD-10) Breast cancer, left lumpectomy performed, then chemo and radiation. Around 1998. C50.912 - Malignant neoplasm of unspecified site of left female breast (ICD- 10) Surgical History History of left hip replacement Z96.642 - Presence of left artificial hip joint (ICD-10) History of arthroplasty of right shoulder Z96.611 - Presence of right artificial shoulder joint (ICD-10) Status post tonsillectomy Very young when tonsils removed. Patient does not remember at what age. Z90.89 - Acquired absence of other organs (ICD-10) History of oophorectomy History of joint surgery (01/01/18) [facility] Dr. Rouse performed a closed left subtrochanteric Femur Fracutre. 2013 Right shoulder, reverse shoulder replacement. Dr. Terrazas Z98.890 - Other specified postprocedural states (ICD-10) Status post hysterectomy Z90.710 - Acquired absence of both cervix and uterus (ICD-10) Status post appendectomy Z90.49 - Acquired absence of other specified parts of digestive tract (ICD- 10) Family History Mother Myocardial infarction FATHER No problems noted. SISTER No problems noted. SISTER Type 2 diabetes mellitus COPD (chronic obstructive pulmonary disease) SISTER Type 2 diabetes mellitus Cardiac disease BROTHER No problems noted. BROTHER No problems noted. SISTER Type 2 diabetes mellitus Social History Smoking and tobacco status: Never smoker Second hand smoke exposure: No Smoking risk assessment performed: No Alcohol intake: never Counseling given: No Substance use type: does not use Special julian needs: No Agree to transfusion: Yes Adopted: No Caregiver/support person: No Foster care: No Household members: spouse Housing: house Marital status: M Lives independently: Yes Daycare: no daycare Number of children: 2 service: No prison: No Current occupational status: retired History of recent travel: No Sexually active: No Current gender identity: female Seatbelt use: always Helmet use: No Drives intoxicated or rides with intoxicated pick up driver: No Water heater temperature set < 120 degrees: Yes Working smoke detector in home: No Fire extinguisher in home: No Carbon monoxide detector in home: No Allergies Allergies Allergy/AdvReac Type Severity Reaction Status Date / Time codeine Allergy Mild rash Verified 08/11/23 11:34 meperidine HCl [From Demerol] Allergy Mild rash Verified 08/11/23 11:34 Current Medications Home Medications famotidine 20 mg tablet (Pepcid) 20 mg PO BID 07/08/21 [History Confirmed 08/11/23 Last Taken 11/01/22 09:00] atorvastatin 10 mg tablet 10 mg PO DAILY #90 tabs 10/11/22 [Rx Confirmed 08/11/23 Last Taken 11/01/22 09:00] ferrous sulfate 325 mg (65 mg iron) tablet (iron) 325 mg PO BID #180 tabs 10/11/22 [Rx Confirmed 08/11/23 Last Taken 11/01/22 09:00] furosemide 40 mg tablet (Lasix) 40 mg PO Q OTHER DAY #90 tabs 10/11/22 [Rx Confirmed 08/11/23 Last Taken 11/01/22 09:00] lisinopril 5 mg tablet 5 mg PO DAILY #90 tabs 10/11/22 [Rx Confirmed 08/11/23 Last Taken 11/01/22 09:00] carvedilol 12.5 mg tablet See Rx Instructions .Route .COMPLEX #180 tabs 10/14/22 [Rx Confirmed 08/11/23 Last Taken 11/01/22 09:00] diltiazem HCl 60 mg tablet 60 mg PO BID 10/23/22 [History Confirmed 08/11/23 Last Taken 11/01/22 09:00] ondansetron 4 mg disintegrating tablet 4 mg PO Q6H PRN Nausea And Vomiting #15 tabs 11/04/22 [Rx Confirmed 08/11/23 Last Taken Unknown] tramadol 50 mg tablet 50 mg PO TID PRN Pain #30 tabs 11/04/22 [Rx Confirmed 08/11/23 Last Taken Unknown] warfarin 5 mg tablet 5 mg PO 1700 11/04/22 [History Confirmed 08/11/23 Last Taken Unknown] digoxin 125 mcg (0.125 mg) tablet 125 mcg PO DAILY #90 tabs 04/21/23 [Rx Confirmed 08/11/23 Last Taken Unknown] potassium chloride 10 mEq capsule,extended release 20 meq PO DAILY 08/09/23 [History Confirmed 08/11/23 Last Taken Unknown] acetaminophen 325 mg tablet (Aphen) 650 mg PO Q6H PRN fever or pain 08/11/23 [History Confirmed 08/11/23 Last Taken Unknown] loperamide 2 mg capsule (Anti-Diarrheal (loperamide)) 2 mg PO Q12H PRN diarrhea 08/11/23 [History Confirmed 08/11/23 Last Taken Unknown] Home Acetaminophen (Acetaminophen 325 Mg Tablet) 650 mg PO Q4H PRN PRN Reason: Mild Pain Albuterol/Ipratropium (Ipratropium/Albuterol Vial.Neb) 3 ml NEB RTQ6H PRN PRN Reason: Wheezing Dexamethasone Sodium Phosphate (Dexamethasone Sod Phos 10 Mg/Ml Inj) 6 mg IVP DAILY MARTIN Furosemide (Furosemide Inj 40 Mg/4 Ml Vial) 40 mg IVP Q8HR MARTIN Ondansetron HCl (Ondansetron Hcl/Pf 4 Mg/2 Ml Sdv) 4 mg IVP Q6H PRN PRN Reason: Nausea / Vomiting Sodium Chloride (0.9% Sodium Chloride 10 Ml Disp.Syrin) 1 syr IVF PRN PRN PRN Reason: To flush IV Warfarin Sodium (Warfarin Sodium 2 Mg Tablet) 4 mg PO QPM MARTIN Discontinued Medications Albuterol/Ipratropium (Ipratropium/Albuterol Vial.Neb) 3 ml NEB ONCE STA Stop: 08/11/23 13:37 Last Admin: 08/11/23 14:26 Dose: 3 ml Furosemide (Furosemide Inj 40 Mg/4 Ml Vial) 40 mg IVP ONCE STA Stop: 08/11/23 11:25 Last Admin: 08/11/23 11:56 Dose: 40 mg CEFTRIAXONE/D5W 1 GM PREMIX (Rocephin 1 Gm/50 Ml D5w) 1 gm in 50 mls @ 100 m ls/hr IV ONCE ONE Stop: 08/11/23 11:56 Last Admin: 08/11/23 11:58 Dose: 100 mls/hr Methylprednisolone Sodium Succinate (Methylprednisolone Sod Succ/Pf 125 Mg/2 Ml Vial) 125 mg IVP ONCE ONE Stop: 08/11/23 11:30 Last Admin: 08/11/23 11:56 Dose: 125 mg Opioid Naive vs. Tolerant Does Patient Take Opioids?: No Is Patient Opioid Naive?: Yes What is Opioid Naive?: *Opioid Naive implies the patient is not already taking opioids or not chronically receiving opioids on a daily basis. *PRN dosing is not "usually" associated with tolerance. *Patients are at higher risk of over-sedation and aspiration. Is Patient Opioid Tolerant?: No What is Opioid Tolerant?: *Opioid Tolerance implies less than the expected response to an opioid. *Acquired tolerance is defined by the patient taking 60mg of oral morphine daily (or equianalgesic dose of another opioid) for 1 week or more. *Often associated with chronic pain. *May take more than usual dose to achieve desired pain control. Review of Systems Constitutional: Reports Fatigue and Weakness; Denies Fever Head: Reports Normocephalic and Atraumatic Throat: Denies Sore Throat or Difficulty Swallowing Cardiovascular: Reports Edema; Denies Chest pain or Chest Pressure Respiratory: Reports Cough and Shortness of air Gastrointestinal: Denies Nausea, Vomiting, Diarrhea, Abdominal pain or Melena Genitourinary: Denies Dysuria or Frequency Dermatologic: Denies Rashes Neurological: Reports Weakness Physical examination Most Recent Vital Signs: Most Recent Vital Signs Temperature 97.8 F 08/11/23 11:17 Temperature Source Infrared 08/11/23 11:17 Pulse Rate 70 08/11/23 11:17 Respiratory Rate 20 08/11/23 11:17 Blood Pressure 126/63 08/11/23 11:17 O2 Sat by Pulse Oximetry 90 L 08/11/23 11:17 Height 5 ft 2 in 08/11/23 11:17 Weight 114 lb 10.246 oz 08/11/23 11:17 Telemetry Heart Rate 106 H 11/04/22 07:00 Appearance: Positive No Apparent Distress, Alert and Oriented x3 and Ill- Appearing Skin: Positive [place], Warm and Good Turgor; Negative Rashes HEENT: Positive Normocephalic and Atraumatic Neck: Positive Supple, JVD (mild) and Midline Trachea Chest/Lungs: Positive Symmetrical With Equal Breath Sounds, Rales, Wheezes and Other (+conversational dyspnea ) Heart: Positive Irregular Rhythm GI/: Positive Soft, Nontender, Bowel Sounds Normal and No Distention Extremities: Positive Edema (1+ pitting edema bilaterally ) Neurological: Positive Cranial Nerves Intact, Alert and Other (+generalized weakness ) Psychiatric: Positive Oriented x4, Appropriate Mood and Appropriate Affect Labs This Visit Labs This Visit: Labs This Visit 08/11/23 08/11/23 11:14 11:41 WBC 4.88 RBC 4.34 Hgb 13.0 Hct 40.8 MCV 94.0 MCH 30.0 MCHC 31.9 RDW Coeff of [place] 13.0 Plt Count 121 L Immature Gran % (Auto) 0.0 Neut % (Auto) 77.2 H Lymph % (Auto) 11.7 [place] % (Auto) 10.9 H Eos % (Auto) 0.0 Baso % (Auto) 0.2 Neut # (Auto) 3.8 Lymph # (Auto) 0.6 [place] # (Auto) 0.5 Eos # (Auto) 0.0 Baso # (Auto) 0.0 Immature Gran # (Auto) 0.0 PT 37.5 H D INR 3.80 Puncture Site Rrad Base Excess 5.7 H O2 Saturation 96.5 ABG pH 7.54 H* ABG pCO2 33.0 L ABG pO2 75.0 L ABG HCO3 28.2 H ABG Total CO2 29.2 H Gian Test + Hemoglobin 1.3 Oxyhemoglobin 94.1 L Carboxyhemoglobin 2.0 H Total Hemoglobin 13.7 O2 Delivery Device Ra FiO2 % 21.0 Sodium 129.8 L Potassium 4.29 Chloride 93.6 L Carbon Dioxide 28.5 Anion Gap 11.99 BUN 27.3 H Creatinine 0.38 L Estimated GFR (MDRD) 164.00 BUN/Creatinine Ratio 71.84 Glucose 126.1 H Calcium 8.62 Magnesium 1.92 Total Bilirubin 0.77 AST 23.1 ALT 26.2 Alkaline Phosphatase 115.4 Troponin I < 0.012 NT-Pro-B Natriuret Pep 7150 H Total Protein 7.25 Albumin 3.63 Globulin 3.62 Albumin/Globulin Ratio 1.00 Procalcitonin < 0.05 Digoxin 1.00 Imaging Imaging: EXAM: CHEST, SINGLE VIEW HISTORY: Dyspnea COMPARISON: 11/01/2022 IMPRESSION: Cardiomediastinal contours appear enlarged and stable. There is central pulmonary vascular congestion. Interstitial prominence within both lungs is basilar predominant. This may reside atelectasis, pulmonary edema and/or pneumonia. Small bilateral pleural effusions. No pneumothorax. Review Statement Review Statement: I have independently reviewed and interpreted the labs/EKGs/imaging that were ordered by the ER provider. I have reviewed all outside records that are available currently in our EMR including imaging/notes/labs from previous visits. Plan Plan: 1. Acute hypoxic respiratory failure in setting of CHF and covid 19 - On 2L, does not wear at baseline. Wean when able. Steroids, lasix q8hrs iv, I&Os. Pt declines remdesivir. 2. Acute heart failure with preserved EF exacerbation - Echo tomorrow. Last EF >55% 11/04. Lasix 40 ivp q8hrs. I&Os. Daily weights. Fluid restriction 1800. Cardiac diet. 3. Covid 19 - Will give dexamethasone since patient is mildly hypoxic. Pt declines remdesivir. Covid isolation. Procal negative, no abx warranted. 4. Supratherapeutic INR - Will decrease warfarin dose by 20%, 4 mg PO ordered tonight. Daily INRs. 5. A fib - Cont home meds, decrease warfarin. 6. Hyperlipidemia - Cont atorvastatin 7. GERD - Cont home meds 8. Hyponatremia - Na 129. Suspect this could worse with diuresis. Will monitor. Fluid restriction. May add salt tabs if worsening. DVT Prophylaxis: Warfarin. Time Spent: Greater than 80 minutes spent with patient, 50% of the time spent with this patient was devoted to counseling and coordination of care. [facility] minutes spent discussing advance care planning. Admit to: Inpatient Discussed Plan of Care with Dr. Tigre Rangel. Medications Medication Orders: Medications Ordered Category Date Time Status 0.9 % Sodium Chloride [Saline Flush] Meds 08/11/23 11:24 Active 1 syr IVF PRN PRN Acetaminophen [Tylenol] Meds 08/11/23 15:00 Active 650 mg PO Q4H PRN Dexamethasone Sod Phosphate [Decadron] Meds 08/12/23 09:00 Active 6 mg IVP DAILY Furosemide [Lasix] Meds 08/11/23 21:00 Active 40 mg IVP Q8HR Ipratropium/Albuterol Neb [Duoneb] Meds 08/11/23 15:02 Active 3 ml NEB RTQ6H PRN Ondansetron HCl/Pf [Zofran 4 mg/2 ml] Meds 08/11/23 15:00 Active 4 mg IVP Q6H PRN
[2023-08-11 15:39] VITALS: BMI 19.3
[2023-08-11] MEDS ORDERED: COUMADIN PO SCH (17:00)
[2023-08-11] MEDS ORDERED: IMODIUM PO PRN (17:36)
[2023-08-11] MEDS: COREG PO SCH (18:31)
[2023-08-11] MEDS: PEPCID PO SCH (20:46)
[2023-08-11] MEDS: CARDIZEM PO SCH (20:46)
[2023-08-11] MEDS: FERROUS SULFATE PO SCH (20:46)
[2023-08-11] MEDS: LASIX IVP SCH (20:46)
[2023-08-12] MEDS: LASIX IVP SCH ×2 (05:27→21:05)
[2023-08-12 06:29] LABS: HEMATOCRIT 40.9 % (37.0-47.0); HEMOGLOBIN 13.2 g/dl (12.0-16.0); IMMATURE GRANULOCYTE % (AUTO) 0.2 % (0.0-5.0); LYMPHOCYTES # (AUTO) 0.4 K/uL (0.60-3.4); LYMPHOCYTES % (AUTO) 7.8 (10.0-50.0); MEAN CORPUSCULAR HEMOGLOBIN 29.5 pg (27.0-31.0); MEAN CORPUSCULAR HGB CONC 32.3 (31.8-35.4); MEAN CORPUSCULAR VOLUME 91.5 fl (81.0-99.0); MONOCYTES # (AUTO) 0.3 K/uL (0.4-2.0); MONOCYTES % (AUTO) 4.7 (0-10); NEUTROPHILS # (AUTO) 4.8 K/ul (2.0-6.9); NEUTROPHILS % (AUTO) 87.3 % (42.2-75.2); PLATELET COUNT 140 10^3/uL (140-440); RDW COEFFICIENT OF VARIATION 13.2 % (11.6-14.8); RED BLOOD COUNT 4.47 10^6/ul (4.20-5.40); WHITE BLOOD COUNT 5.48 K/ul (4.6-10.2)
[2023-08-12 06:52] LABS: ALANINE AMINOTRANSFERASE 22.3 U/L (0-35); ALBUMIN 3.46 g/dL (3.5-5.0); ALKALINE PHOSPHATASE 112.2 U/L (53-141); ASPARTATE AMINO TRANSFERASE 21.2 U/L (14-36); BILIRUBIN,TOTAL 0.66 mg/dL (0.2-1.3); BLOOD UREA NITROGEN 27.2 mg/dL (7-17); CALCIUM 8.42 mg/dL (8.4-10.2); CARBON DIOXIDE 33.3 mmol/L (22-30.0); CHLORIDE 90.8 mmol/L (98-107); CREATININE 0.5 mg/dL (0.60-1.30); GLUCOSE 138.7 mg/dL (74-106); POTASSIUM 3.13 mmol/L (3.5-5.1); SODIUM 130.3 mmol/L (134.5-145); TOTAL PROTEIN 6.96 g/dL (6.3-8.2)
[2023-08-12 07:42] LABS: PROTHROMBIN TIME 43.7 SEC (9.3-11.0)
[2023-08-12] MEDS ORDERED: K-DUR PO ONE ×2 (08:23→15:00)
[2023-08-12] MEDS: PEPCID PO SCH ×2 (08:24→21:04)
[2023-08-12] MEDS: FERROUS SULFATE PO SCH ×2 (08:25→21:04)
[2023-08-12] MEDS: DECADRON IVP SCH (08:25)
[2023-08-12] MEDS: LIPITOR PO SCH (08:25)
[2023-08-12] MEDS: COREG PO SCH ×2 (08:26→16:59)
[2023-08-12] MEDS: LANOXIN PO SCH (08:26)
[2023-08-12] MEDS: ZESTRIL PO SCH (08:26)
[2023-08-12] MEDS: CARDIZEM PO SCH ×2 (08:26→21:04)
[2023-08-12] MEDS ORDERED: MICRO-K CAP PO SCH (09:00)
--- NOTE | 2023-08-12 10:56 | PCM.PROG ---
Date/Time Seen Date Seen by Provider: 08/12/23 Time Seen by Provider: 09:00 Provider Provider: GOLDEN TRAVIS PA-C, [facility] Chief Complaint Chief Complaint: COVID, PNEUMONIA, ACUTE CHF Subjective Subjective: Patient still on 2L today. Feeling better. States her breathing is better. No chest pain. Peripheral swelling improved. Son at bedside. Objective Appearance: Positive No Apparent Distress and Alert and Oriented x3 Chest/Lungs: Positive Symmetrical With Equal Breath Sounds, Rales (improved ) and Wheezes (improved ) Heart: Positive Irregular Rhythm and Other (no edema today ) GI/: Positive Soft, Nontender and Bowel Sounds Normal Neurological: Positive Cranial Nerves Intact, Alert and Other (+generalized weakness ) Vital Signs Vital Signs: Vital Signs: Last 24 Hours 08/11/23 11:17 08/11/23 15:27 08/11/23 15:30 Temperature 97.8 F 97.6 F Temperature Source Infrared Oral Pulse Rate 70 76 Respiratory Rate 20 20 Blood Pressure 126/63 Blood Pressure Mean Blood Pressure Right Arm 125/78 Blood Pressure Location Blood Pressure Position Sitting O2 Sat by Pulse Oximetry 90 L 96 Oxygen Delivery Method Nasal Cannula Nasal Cannula Oxygen Flow Rate 2 2 Height 5 ft 2 in 5 ft 2 in Weight 114 lb 10.246 oz 105 lb 8 oz 08/11/23 18:00 08/11/23 19:46 08/11/23 20:00 Temperature 97.6 F 97.6 F Temperature Source Oral Oral Pulse Rate 103 H 77 Respiratory Rate 24 H 16 Blood Pressure 128/69 102/53 L Blood Pressure Mean 88 69 Blood Pressure Right Arm Blood Pressure Location Right Arm Right Arm Blood Pressure Position Sitting Supine O2 Sat by Pulse Oximetry 93 L 93 L 94 L Oxygen Delivery Method Nasal Cannula Nasal Cannula Nasal Cannula Oxygen Flow Rate 2 2 2 Height Weight 08/11/23 20:00 08/11/23 21:39 08/12/23 01:12 Temperature 97.9 F 97.7 F Temperature Source Temporal Artery Scan Temporal Artery Scan Pulse Rate 84 64 Respiratory Rate 18 19 18 Blood Pressure 110/65 112/68 Blood Pressure Mean 80 82 Blood Pressure Right Arm Blood Pressure Location Right Arm Right Arm Blood Pressure Position Supine Supine O2 Sat by Pulse Oximetry 95 96 Oxygen Delivery Method Nasal Cannula Nasal Cannula Nasal Cannula Oxygen Flow Rate 2 2 2 Height Weight 08/12/23 04:57 08/12/23 05:51 08/12/23 05:51 Temperature 96.9 F L Temperature Source Temporal Artery Scan Pulse Rate 68 Respiratory Rate 16 Blood Pressure 132/80 Blood Pressure Mean 97 Blood Pressure Right Arm Blood Pressure Location Right Arm Blood Pressure Position Supine O2 Sat by Pulse Oximetry 96 Oxygen Delivery Method Nasal Cannula Nasal Cannula Oxygen Flow Rate 2 2 Height Weight 103 lb 08/12/23 08:00 08/12/23 08:26 08/12/23 09:46 Temperature Temperature Source Pulse Rate 68 Respiratory Rate Blood Pressure Blood Pressure Mean Blood Pressure Right Arm Blood Pressure Location Blood Pressure Position O2 Sat by Pulse Oximetry Oxygen Delivery Method Nasal Cannula Nasal Cannula Oxygen Flow Rate 2 2 Height Weight 08/12/23 10:00 Temperature 98.0 F Temperature Source Oral Pulse Rate 86 Respiratory Rate 18 Blood Pressure 99/65 Blood Pressure Mean 76 Blood Pressure Right Arm Blood Pressure Location Right Arm Blood Pressure Position Sitting O2 Sat by Pulse Oximetry 93 L Oxygen Delivery Method Nasal Cannula Oxygen Flow Rate 2 Height Weight Lab Results Lab Results: Lab Results: Last 24 Hours 08/12/23 08/11/23 08/11/23 06:04 11:41 11:14 WBC 5.48 4.88 RBC 4.47 4.34 Hgb 13.2 13.0 Hct 40.9 40.8 MCV 91.5 94.0 MCH 29.5 30.0 MCHC 32.3 31.9 RDW Coeff of [place] 13.2 13.0 Plt Count 140 121 L Immature Gran % (Auto) 0.2 0.0 Neut % (Auto) 87.3 H 77.2 H Lymph % (Auto) 7.8 L 11.7 [place] % (Auto) 4.7 10.9 H Eos % (Auto) 0.0 0.0 Baso % (Auto) 0.0 0.2 Neut # (Auto) 4.8 3.8 Lymph # (Auto) 0.4 L 0.6 [place] # (Auto) 0.3 L 0.5 Eos # (Auto) 0.0 0.0 Baso # (Auto) 0.0 0.0 Immature Gran # (Auto) 0.0 0.0 PT 43.7 H D 37.5 H D INR 4.45 H* 3.80 Puncture Site Rrad Base Excess 5.7 H O2 Saturation 96.5 ABG pH 7.54 H* ABG pCO2 33.0 L ABG pO2 75.0 L ABG HCO3 28.2 H ABG Total CO2 29.2 H Gian Test + Hemoglobin 1.3 Oxyhemoglobin 94.1 L Carboxyhemoglobin 2.0 H Total Hemoglobin 13.7 O2 Delivery Device Ra FiO2 % 21.0 Sodium 130.3 L 129.8 L Potassium 3.13 L 4.29 Chloride 90.8 L 93.6 L Carbon Dioxide 33.3 H 28.5 Anion Gap 9.33 11.99 BUN 27.2 H 27.3 H Creatinine 0.50 L 0.38 L Estimated GFR (MDRD) 119.00 164.00 BUN/Creatinine Ratio 54.40 71.84 Glucose 138.7 H 126.1 H Calcium 8.42 8.62 Magnesium 1.92 Total Bilirubin 0.66 0.77 AST 21.2 23.1 ALT 22.3 26.2 Alkaline Phosphatase 112.2 115.4 Troponin I < 0.012 NT-Pro-B Natriuret Pep 7150 H Total Protein 6.96 7.25 Albumin 3.46 L 3.63 Globulin 3.50 3.62 Albumin/Globulin Ratio 0.98 1.00 Procalcitonin < 0.05 Digoxin 1.00 Additional Comments Additional Comments: I have independently reviewed and interpreted the labs/EKGs/imaging ordered during this hospital stay. I have reviewed outside records that are available in our EMR that pertain to medical stay including imaging/notes/labs from previous visits. Active Medications Active Medications: Medications Generic Name Dose Route Start Last Admin Trade Name Freq PRN Reason Stop Dose Admin Acetaminophen 650 mg 08/11/23 15:00 Acetaminophen 325 Mg Tablet PO Q4H PRN Mild Pain Albuterol/Ipratropium 3 ml 08/11/23 15:02 Ipratropium/Albuterol Vial.Neb NEB RTQ6H PRN Wheezing Atorvastatin Calcium 10 mg 08/12/23 09:00 08/12/23 08:25 Atorvastatin Calcium 10 Mg Tablet PO 10 mg DAILY MARTIN Administration Carvedilol 12.5 mg 08/11/23 19:00 08/12/23 08:26 Carvedilol 12.5 Mg Tablet PO 12.5 mg [id number] MARTIN Administration Dexamethasone Sodium Phosphate 6 mg 08/12/23 09:00 08/12/23 08:25 Dexamethasone Sod Phos 10 Mg/Ml Inj IVP 6 mg DAILY MARTIN Administration Digoxin 125 mcg 08/12/23 09:00 08/12/23 08:26 Digoxin 125 Mcg Tablet PO 125 mcg DAILY MARTIN Administration Diltiazem HCl 60 mg 08/11/23 21:00 08/12/23 08:26 Diltiazem Hcl 60 Mg Tablet PO 60 mg BID MARTIN Administration Famotidine 20 mg 08/11/23 21:00 08/12/23 08:24 Famotidine 20 Mg Tablet PO 20 mg BID MARTIN Administration Ferrous Sulfate 324 mg 08/11/23 21:00 08/12/23 08:25 Ferrous Sulfate 324 Mg Tablet. PO 324 mg BID MARTIN Administration Furosemide 40 mg 08/11/23 21:00 08/12/23 05:27 Furosemide Inj 40 Mg/4 Ml Vial IVP 40 mg Q8HR MARTIN Administration Lisinopril 5 mg 08/12/23 09:00 08/12/23 08:26 Lisinopril 5 Mg Tablet PO 5 mg DAILY MARTIN Administration Loperamide HCl 2 mg 08/11/23 17:36 Loperamide Hcl 2 Mg Tablet PO Q12H PRN Diarrhea Ondansetron HCl 4 mg 08/11/23 15:00 Ondansetron Hcl/Pf 4 Mg/2 Ml Sdv IVP Q6H PRN Nausea / Vomiting Potassium Chloride 20 meq 08/13/23 07:30 Potassium Chloride 20 Meq Tab PO DAILYWM2 MARTIN Sodium Chloride 1 syr 08/11/23 11:24 08/12/23 05:28 0.9% Sodium Chloride 10 Ml Disp.Syrin IVF 1 syr PRN PRN Administration To flush IV Warfarin Sodium 4 mg 08/11/23 17:00 08/11/23 17:05 Warfarin Sodium 2 Mg Tablet PO 4 mg QPM MARTIN Administration Plan Plan: 1. Acute hypoxic respiratory failure in setting of CHF and covid 19 - On 2L, does not wear at baseline. Wean when able. Steroids, decrease lasix to 20 mg q12hrs iv, I&Os. Pt declines remdesivir. 2. Acute heart failure with preserved EF exacerbation - Echo ordered for today. Last EF >55% 11/04. Decrease Lasix to 20 ivp q12hrs. I&Os. Daily weights. Fluid restriction 1800. Cardiac diet. 3. Covid 19 - Cont dexamethasone. Pt declines remdesivir. Covid isolation. Procal negative, no abx warranted. 4. Supratherapeutic INR - Worse today, hold warfarin. Daily INRs. 5. A fib - Cont home meds, decrease warfarin. 6. Hyperlipidemia - Cont atorvastatin 7. GERD - Cont home meds 8. Hyponatremia - Na 130. Suspect this could worse with diuresis. Will monitor. Fluid restriction. May add salt tabs if worsening. 9. Hypokalemia - Replaced DVT Prophylaxis: Warfarin. Review Statement Review Statement: I have personally discussed and reviewed the patient's visit/currently labs /imaging/decision making with Dr. Rangel, my supervising attending. Greater that 50 minutes spent with patient, 50% of the time spent with this patient was devoted to counseling and coordination of care.
--- NOTE | 2023-08-12 14:14 | ECHO2D ---
Date of Exam: 08/12/2023 Ordering Physician: DR. GONZALEZ Room #: SCU 2 Reason for Echo: CONGESTIVE HEART FAILURE, DILATED CARDIOMYOPATHY, HISTORY OF ATRIAL FIBRILLATION, PULMONARY HYPERTENSION M-Mode Normal Adult Results LV Dimensions Normal Adult Results AoV Opening excursions >1.6 >1.6 LVEDD-base- 3.5-5.8 4.2 Ao root dimensions 2.0-3.7 2.9 LVESD-base- 3.1-4.6 L. Atrium dimensions 1.9-3.8 4.5 Post. Wall thickness 0.8-1.1 1.1 IV septum (thickness) 0.7-1.2 0.9 Post. Wall excursion 0.72-1.3 NORMAL Septal motion NORMAL Systolic motion R. Ventricular cavity 1.5-2.0 3.5 LVEF 60% 62% Paradoxical septal wall motion NORMAL 2-D :ENLARGED BIATRIAL CAVITIES, ENLARGED RIGHT VENTRICLE CAVITY. CALCIFIC MITRAL VALVE ANNULUS AND ANTERIOR MITRAL LEAFLETS. NO EFFUSION - NO THROMBUS. LEFT VENTRICULAR CAVITY SIZE IS NORMAL AND LEFT VENTRICULAR CONTRACTILITY IS NORMAL. COLOR FLOW: MILD TO MODERATE MITRAL REGURGITATION AND TRICUSPID REGURGITATION. M-MODE: MV: CALCIFIC MITRAL VALVE ANNULUS AND ANTERIOR MITRAL LEAFLETS CALCIFIC, NO MITRAL STENOSIS AV: NORMAL TV: NORMAL PV: NORMAL CHAMBER SIZE: ENLARGED BIATRIAL CAVITIES, ENLARGED RIGHT VENTRICLE CAVITY. WALL MOTION: NORMAL PERICARDIUM: NORMAL INTERPRETATION: 1. CALCIFIC MITRAL VALVE ANNULUS AND ANTERIOR MITRAL LEAFLETS. 2. ENLARGED BIATRIAL CAVITIES, ENLARGED RIGHT VENTRICLE CAVITY. 3. NORMAL LEFT VENTRICLE SIZE AND LEFT VENTRICULAR CONTRACTILITY. 4. VALVES NORMAL. MTDD
[2023-08-12] MEDS: ROBITUSSIN DM SYRUP PO PRN ×2 (17:04→21:05)
[2023-08-12] MEDS ORDERED: LASIX IVP SCH (21:00)
[2023-08-13] MEDS: ROBITUSSIN DM SYRUP PO PRN ×2 (03:10→14:30)
[2023-08-13] MEDS: LASIX IVP SCH (05:03)
[2023-08-13 05:58] LABS: BASOPHILS % (AUTO) 0.1 % (0.0-3.0); HEMATOCRIT 40.6 % (37.0-47.0); HEMOGLOBIN 12.9 g/dl (12.0-16.0); IMMATURE GRANULOCYTE % (AUTO) 0.3 % (0.0-5.0); LYMPHOCYTES # (AUTO) 0.6 K/uL (0.60-3.4); LYMPHOCYTES % (AUTO) 6.7 (10.0-50.0); MEAN CORPUSCULAR HEMOGLOBIN 29.3 pg (27.0-31.0); MEAN CORPUSCULAR HGB CONC 31.8 (31.8-35.4); MEAN CORPUSCULAR VOLUME 92.1 fl (81.0-99.0); MONOCYTES # (AUTO) 0.5 K/uL (0.4-2.0); MONOCYTES % (AUTO) 5.7 (0-10); NEUTROPHILS # (AUTO) 7.5 K/ul (2.0-6.9); NEUTROPHILS % (AUTO) 87.2 % (42.2-75.2); PLATELET COUNT 155 10^3/uL (140-440); RDW COEFFICIENT OF VARIATION 13.2 % (11.6-14.8); RED BLOOD COUNT 4.41 10^6/ul (4.20-5.40); WHITE BLOOD COUNT 8.61 K/ul (4.6-10.2)
[2023-08-13 06:06] LABS: PROTHROMBIN TIME 35.5 SEC (9.3-11.0)
[2023-08-13 06:07] LABS: ALANINE AMINOTRANSFERASE 22.6 U/L (0-35); ALBUMIN 3.46 g/dL (3.5-5.0); ALKALINE PHOSPHATASE 105.5 U/L (53-141); ASPARTATE AMINO TRANSFERASE 21.6 U/L (14-36); BILIRUBIN,TOTAL 0.54 mg/dL (0.2-1.3); BLOOD UREA NITROGEN 28.2 mg/dL (7-17); CALCIUM 8.38 mg/dL (8.4-10.2); CARBON DIOXIDE 35.3 mmol/L (22-30.0); CHLORIDE 91.5 mmol/L (98-107); CREATININE 0.5 mg/dL (0.60-1.30); GLUCOSE 131.3 mg/dL (74-106); POTASSIUM 3.79 mmol/L (3.5-5.1); SODIUM 130.4 mmol/L (134.5-145); TOTAL PROTEIN 6.87 g/dL (6.3-8.2)
[2023-08-13] MEDS ORDERED: MICRO-K CAP PO SCH (07:30)
[2023-08-13] MEDS: COREG PO SCH ×2 (08:16→16:45)
[2023-08-13] MEDS: K-DUR PO SCH (08:16)
[2023-08-13] MEDS: FERROUS SULFATE PO SCH ×2 (08:16→20:39)
[2023-08-13] MEDS: DECADRON IVP SCH (08:16)
[2023-08-13] MEDS: PEPCID PO SCH ×2 (08:16→20:39)
[2023-08-13] MEDS: ZESTRIL PO SCH (08:16)
[2023-08-13] MEDS: CARDIZEM PO SCH ×2 (08:16→20:39)
[2023-08-13] MEDS: LANOXIN PO SCH (08:16)
[2023-08-13] MEDS: LIPITOR PO SCH (08:17)
--- NOTE | 2023-08-13 09:46 | PCM.PROG ---
Date/Time Seen Date Seen by Provider: 08/13/23 Time Seen by Provider: 08:45 Provider Provider: GOLDEN TRAVIS PA-C, [facility] Chief Complaint Chief Complaint: COVID, PNEUMONIA, ACUTE CHF Subjective Subjective: Patient feels very weak. Looking forward to trying to get out of bed today and getting catheter out today. She states her breathing feels better. Coughed a lot through the night. Objective Appearance: Positive No Apparent Distress and Alert and Oriented x3 Chest/Lungs: Positive Symmetrical With Equal Breath Sounds, Rales (much improved ) and Wheezes (much improved ) Heart: Positive Irregular Rhythm and Other (no edema today ) GI/: Positive Soft, Nontender and Bowel Sounds Normal Neurological: Positive Cranial Nerves Intact, Alert and Other (+generalized weakness ) Vital Signs Vital Signs: Vital Signs: Last 24 Hours 08/12/23 09:46 08/12/23 10:00 08/12/23 13:43 Temperature 98.0 F 97.5 F L Temperature Source Oral Oral Pulse Rate 86 87 Respiratory Rate 18 20 Blood Pressure 99/65 124/68 Blood Pressure Mean 76 86 Blood Pressure Location Right Arm Right Arm Blood Pressure Position Sitting Sitting O2 Sat by Pulse Oximetry 93 L 95 Oxygen Delivery Method Nasal Cannula Nasal Cannula Nasal Cannula Oxygen Flow Rate 2 2 2 Weight 08/12/23 14:00 08/12/23 16:04 08/12/23 18:00 Temperature 97.8 F Temperature Source Oral Pulse Rate 90 Respiratory Rate 18 Blood Pressure 98/44 L Blood Pressure Mean 62 Blood Pressure Location Right Arm Blood Pressure Position Sitting O2 Sat by Pulse Oximetry 93 L 93 L Oxygen Delivery Method Nasal Cannula Nasal Cannula Nasal Cannula Oxygen Flow Rate 2 1 1 Weight 08/12/23 19:26 08/12/23 20:00 08/12/23 22:00 Temperature 97.6 F Temperature Source Oral Pulse Rate 62 Respiratory Rate 22 H Blood Pressure 118/65 Blood Pressure Mean 82 Blood Pressure Location Right Arm Blood Pressure Position Supine O2 Sat by Pulse Oximetry 97 96 Oxygen Delivery Method Nasal Cannula Nasal Cannula Nasal Cannula Oxygen Flow Rate 1 1 1 Weight 08/13/23 02:00 08/13/23 05:19 08/13/23 05:26 Temperature 97.5 F L Temperature Source Oral Pulse Rate 73 92 Respiratory Rate 20 20 Blood Pressure 143/64 H Blood Pressure Mean 90 Blood Pressure Location Left Arm Blood Pressure Position Supine O2 Sat by Pulse Oximetry 91 L 94 L 95 Oxygen Delivery Method Nasal Cannula Nasal Cannula Nasal Cannula Oxygen Flow Rate 1 1 Weight 08/13/23 05:27 08/13/23 07:27 08/13/23 08:16 Temperature Temperature Source Pulse Rate 90 Respiratory Rate Blood Pressure Blood Pressure Mean Blood Pressure Location Blood Pressure Position O2 Sat by Pulse Oximetry Oxygen Delivery Method Room Air Oxygen Flow Rate Weight 103 lb 9.6 oz Lab Results Lab Results: Lab Results: Last 24 Hours 08/13/23 05:17 WBC 8.61 RBC 4.41 Hgb 12.9 Hct 40.6 MCV 92.1 MCH 29.3 MCHC 31.8 RDW Coeff of [place] 13.2 Plt Count 155 Immature Gran % (Auto) 0.3 Neut % (Auto) 87.2 H Lymph % (Auto) 6.7 L [place] % (Auto) 5.7 Eos % (Auto) 0.0 Baso % (Auto) 0.1 Neut # (Auto) 7.5 H Lymph # (Auto) 0.6 [place] # (Auto) 0.5 Eos # (Auto) 0.0 Baso # (Auto) 0.0 Immature Gran # (Auto) 0.0 PT 35.5 H D INR 3.58 Sodium 130.4 L Potassium 3.79 Chloride 91.5 L Carbon Dioxide 35.3 H Anion Gap 7.39 BUN 28.2 H Creatinine 0.50 L Estimated GFR (MDRD) 119.00 BUN/Creatinine Ratio 56.40 Glucose 131.3 H Calcium 8.38 L Total Bilirubin 0.54 AST 21.6 ALT 22.6 Alkaline Phosphatase 105.5 Total Protein 6.87 Albumin 3.46 L Globulin 3.41 Albumin/Globulin Ratio 1.01 Additional Comments Additional Comments: I have independently reviewed and interpreted the labs/EKGs/imaging ordered during this hospital stay. I have reviewed outside records that are available in our EMR that pertain to medical stay including imaging/notes/labs from previous visits. Active Medications Active Medications: Medications Generic Name Dose Route Start Last Admin Trade Name Freq PRN Reason Stop Dose Admin Acetaminophen 650 mg 08/11/23 15:00 Acetaminophen 325 Mg Tablet PO Q4H PRN Mild Pain Albuterol/Ipratropium 3 ml 08/11/23 15:02 Ipratropium/Albuterol Vial.Neb NEB RTQ6H PRN Wheezing Atorvastatin Calcium 10 mg 08/12/23 09:00 08/13/23 08:17 Atorvastatin Calcium 10 Mg Tablet PO 10 mg DAILY MARTIN Administration Carvedilol 12.5 mg 08/11/23 19:00 08/13/23 08:16 Carvedilol 12.5 Mg Tablet PO 12.5 mg [id number] MARTIN Administration Dexamethasone Sodium Phosphate 6 mg 08/12/23 09:00 08/13/23 08:16 Dexamethasone Sod Phos 10 Mg/Ml Inj IVP 6 mg DAILY MARTIN Administration Digoxin 125 mcg 08/12/23 09:00 08/13/23 08:16 Digoxin 125 Mcg Tablet PO 125 mcg DAILY MARTIN Administration Diltiazem HCl 60 mg 08/11/23 21:00 08/13/23 08:16 Diltiazem Hcl 60 Mg Tablet PO 60 mg BID MARTIN Administration Famotidine 20 mg 08/11/23 21:00 08/13/23 08:16 Famotidine 20 Mg Tablet PO 20 mg BID MARTIN Administration Ferrous Sulfate 324 mg 08/11/23 21:00 08/13/23 08:16 Ferrous Sulfate 324 Mg Tablet. PO 324 mg BID MARTIN Administration Guaifenesin/Dextromethorphan 5 ml 08/12/23 10:59 08/13/23 03:10 Guaifenesin/Dextromethorphan 200/20 Mg/10 Ml Cup PO 5 ml Q4H PRN Administration Cough Lisinopril 5 mg 08/12/23 09:00 08/13/23 08:16 Lisinopril 5 Mg Tablet PO 5 mg DAILY MARTIN Administration Loperamide HCl 2 mg 08/11/23 17:36 Loperamide Hcl 2 Mg Tablet PO Q12H PRN Diarrhea Ondansetron HCl 4 mg 08/11/23 15:00 Ondansetron Hcl/Pf 4 Mg/2 Ml Sdv IVP Q6H PRN Nausea / Vomiting Potassium Chloride 20 meq 08/13/23 07:30 08/13/23 08:16 Potassium Chloride 20 Meq Tab PO 20 meq [id number] MARTIN Administration Sodium Chloride 1 syr 08/11/23 11:24 08/12/23 05:28 0.9% Sodium Chloride 10 Ml Disp.Syrin IVF 1 syr PRN PRN Administration To flush IV Plan Plan: 1. Acute hypoxic respiratory failure in setting of CHF and covid 19 - Improving, On RA this morning, does not wear at baseline. Steroids, stop lasix, d/c herbert, I&Os. Pt declines remdesivir. 2. Acute heart failure with preserved EF exacerbation - Echo with normal EF. Stop lasix, d/c herbert. I&Os. Daily weights. Fluid restriction 1800. Cardiac diet. 3. Covid 19 - Cont dexamethasone. Pt declines remdesivir. Covid isolation. Procal negative, no abx warranted. 4. Supratherapeutic INR - Improved today. Will restart with lower dose this evening. Daily INRs. 5. A fib - Cont home meds, decrease warfarin. 6. Hyperlipidemia - Cont atorvastatin 7. GERD - Cont home meds 8. Hyponatremia - Na 130. Will monitor. Fluid restriction. May add salt tabs if worsening. 9. Hypokalemia - Replaced DVT Prophylaxis: Warfarin. Review Statement Review Statement: I have personally discussed and reviewed the patient's visit/currently labs/imaging/decision making with Dr. Rangel, my supervising attending. Greater that 50 minutes spent with patient, 50% of the time spent with this pat ient was devoted to counseling and coordination of care.
[2023-08-13] MEDS ORDERED: COUMADIN PO SCH (17:00)
[2023-08-14] MEDS: ROBITUSSIN DM SYRUP PO PRN (00:23)
[2023-08-14 06:04] LABS: BASOPHILS % (AUTO) 0.1 % (0.0-3.0); HEMATOCRIT 42.1 % (37.0-47.0); HEMOGLOBIN 13.3 g/dl (12.0-16.0); IMMATURE GRANULOCYTE # (AUTO) 0.1 (0.0-1.0); IMMATURE GRANULOCYTE % (AUTO) 0.5 % (0.0-5.0); LYMPHOCYTES # (AUTO) 0.7 K/uL (0.60-3.4); LYMPHOCYTES % (AUTO) 6.7 (10.0-50.0); MEAN CORPUSCULAR HEMOGLOBIN 29.2 pg (27.0-31.0); MEAN CORPUSCULAR HGB CONC 31.6 (31.8-35.4); MEAN CORPUSCULAR VOLUME 92.5 fl (81.0-99.0); MONOCYTES # (AUTO) 0.6 K/uL (0.4-2.0); MONOCYTES % (AUTO) 6.3 (0-10); NEUTROPHILS # (AUTO) 8.3 K/ul (2.0-6.9); NEUTROPHILS % (AUTO) 86.4 % (42.2-75.2); PLATELET COUNT 163 10^3/uL (140-440); RDW COEFFICIENT OF VARIATION 13.2 % (11.6-14.8); RED BLOOD COUNT 4.55 10^6/ul (4.20-5.40); WHITE BLOOD COUNT 9.63 K/ul (4.6-10.2)
[2023-08-14 06:14] LABS: ALANINE AMINOTRANSFERASE 23.2 U/L (0-35); ALBUMIN 3.49 g/dL (3.5-5.0); ASPARTATE AMINO TRANSFERASE 25.3 U/L (14-36); BILIRUBIN,TOTAL 0.59 mg/dL (0.2-1.3); BLOOD UREA NITROGEN 25.4 mg/dL (7-17); CALCIUM 8.35 mg/dL (8.4-10.2); CARBON DIOXIDE 34.9 mmol/L (22-30.0); CREATININE 0.37 mg/dL (0.60-1.30); GLUCOSE 124.3 mg/dL (74-106); SODIUM 129.5 mmol/L (134.5-145); TOTAL PROTEIN 6.93 g/dL (6.3-8.2)
[2023-08-14 06:20] LABS: PROTHROMBIN TIME 28.4 SEC (9.3-11.0)
[2023-08-14] MEDS: FERROUS SULFATE PO SCH ×2 (08:10→20:27)
[2023-08-14] MEDS: LANOXIN PO SCH (08:10)
[2023-08-14] MEDS: LIPITOR PO SCH (08:10)
[2023-08-14] MEDS: CARDIZEM PO SCH ×2 (08:10→20:27)
[2023-08-14] MEDS: K-DUR PO SCH (08:10)
[2023-08-14] MEDS: DECADRON IVP SCH (08:10)
[2023-08-14] MEDS: PEPCID PO SCH ×2 (08:11→20:27)
[2023-08-14] MEDS: ZESTRIL PO SCH (08:11)
[2023-08-14] MEDS: COREG PO SCH ×2 (08:11→16:16)
[2023-08-14] MEDS: SODIUM CHLORIDE PO SCH ×3 (08:59→20:27)
[2023-08-14] MEDS: MUCINEX PO SCH ×2 (08:59→20:27)
--- NOTE | 2023-08-14 09:20 | PCM.PROG ---
Date/Time Seen Date Seen by Provider: 08/14/23 Time Seen by Provider: 08:40 Provider Provider: GOLDEN TRAVIS PA-C, [facility] Chief Complaint Chief Complaint: COVID, PNEUMONIA, ACUTE CHF Subjective Subjective: Patient states she's finally feeling some better today. Complains of still feeling very weak and tired. Sitting up in the chair. Wearing 1L. Was able to get a shower yesterday which helped. Objective Appearance: Positive No Apparent Distress and Alert and Oriented x3 Chest/Lungs: Positive Symmetrical With Equal Breath Sounds and Clear to Auscultation Bilaterally Heart: Positive Irregular Rhythm and Other (no edema today ) GI/: Positive Soft, Nontender and Bowel Sounds Normal Neurological: Positive Cranial Nerves Intact, Alert and Other (+generalized weakness ) Vital Signs Vital Signs: Vital Signs: Last 24 Hours 08/13/23 10:00 08/13/23 10:00 08/13/23 13:57 Temperature 97.5 F L Temperature Source Oral Pulse Rate 79 Respiratory Rate 18 Blood Pressure 105/68 Blood Pressure Mean 80 Blood Pressure Location Right Arm Blood Pressure Position Sitting O2 Sat by Pulse Oximetry 94 L 92 L Oxygen Delivery Method Nasal Cannula Nasal Cannula Nasal Cannula Oxygen Flow Rate 1 1 1 Weight 08/13/23 13:58 08/13/23 17:04 08/13/23 19:24 Temperature 98 F 97.7 F Temperature Source Temporal Artery Scan Oral Pulse Rate 78 76 Respiratory Rate 16 16 Blood Pressure 119/72 139/73 Blood Pressure Mean 87 95 Blood Pressure Location Right Arm Left Arm Blood Pressure Position Supine Supine O2 Sat by Pulse Oximetry 95 93 L 96 Oxygen Delivery Method Nasal Cannula Nasal Cannula Nasal Cannula Oxygen Flow Rate 1 1 1 Weight 08/13/23 20:28 08/13/23 22:00 08/14/23 02:00 Temperature 97.2 F L Temperature Source Temporal Artery Scan Pulse Rate 79 77 Respiratory Rate 18 20 Blood Pressure 114/71 Blood Pressure Mean 85 Blood Pressure Location Left Arm Blood Pressure Position Supine O2 Sat by Pulse Oximetry 96 94 L Oxygen Delivery Method Nasal Cannula Nasal Cannula Nasal Cannula Oxygen Flow Rate 1 1 1 Weight 08/14/23 05:15 08/14/23 05:17 08/14/23 05:43 Temperature 98.1 F Temperature Source Temporal Artery Scan Pulse Rate 100 Respiratory Rate 20 Blood Pressure 105/63 Blood Pressure Mean 77 Blood Pressure Location Left Arm Blood Pressure Position Supine O2 Sat by Pulse Oximetry 93 L 94 L Oxygen Delivery Method Nasal Cannula Nasal Cannula Oxygen Flow Rate 1 1 Weight 103 lb 9.6 oz 08/14/23 08:00 08/14/23 08:10 Temperature Temperature Source Pulse Rate 90 Respiratory Rate 18 Blood Pressure Blood Pressure Mean Blood Pressure Location Blood Pressure Position O2 Sat by Pulse Oximetry Oxygen Delivery Method Nasal Cannula Oxygen Flow Rate 1 Weight Lab Results Lab Results: Lab Results: Last 24 Hours 08/14/23 05:54 WBC 9.63 RBC 4.55 Hgb 13.3 Hct 42.1 MCV 92.5 MCH 29.2 MCHC 31.6 L RDW Coeff of [place] 13.2 Plt Count 163 Immature Gran % (Auto) 0.5 Neut % (Auto) 86.4 H Lymph % (Auto) 6.7 L [place] % (Auto) 6.3 Eos % (Auto) 0.0 Baso % (Auto) 0.1 Neut # (Auto) 8.3 H Lymph # (Auto) 0.7 [place] # (Auto) 0.6 Eos # (Auto) 0.0 Baso # (Auto) 0.0 Immature Gran # (Auto) 0.1 PT 28.4 H D INR 2.84 Sodium 129.5 L Potassium 4.00 Chloride 91.0 L Carbon Dioxide 34.9 H Anion Gap 7.60 BUN 25.4 H Creatinine 0.37 L Estimated GFR (MDRD) 169.00 BUN/Creatinine Ratio 68.64 Glucose 124.3 H Calcium 8.35 L Total Bilirubin 0.59 AST 25.3 ALT 23.2 Alkaline Phosphatase 107.0 Total Protein 6.93 Albumin 3.49 L Globulin 3.44 Albumin/Globulin Ratio 1.01 Additional Comments Additional Comments: I have independently reviewed and interpreted the labs/EKGs/imaging ordered during this hospital stay. I have reviewed outside records that are available in our EMR that pertain to medical stay including imaging/notes/labs from previous visits. Active Medications Active Medications: Medications Generic Name Dose Route Start Last Admin Trade Name Freq PRN Reason Stop Dose Admin Acetaminophen 650 mg 08/11/23 15:00 Acetaminophen 325 Mg Tablet PO Q4H PRN Mild Pain Albuterol/Ipratropium 3 ml 08/11/23 15:02 Ipratropium/Albuterol Vial.Neb NEB RTQ6H PRN Wheezing Atorvastatin Calcium 10 mg 08/12/23 09:00 08/14/23 08:10 Atorvastatin Calcium 10 Mg Tablet PO 10 mg DAILY MARTIN Administration Carvedilol 12.5 mg 08/11/23 19:00 08/14/23 08:11 Carvedilol 12.5 Mg Tablet PO 12.5 mg [id number] MARTIN Administration Dexamethasone Sodium Phosphate 6 mg 08/12/23 09:00 08/14/23 08:10 Dexamethasone Sod Phos 10 Mg/Ml Inj IVP 6 mg DAILY MARTIN Administration Digoxin 125 mcg 08/12/23 09:00 08/14/23 08:10 Digoxin 125 Mcg Tablet PO 125 mcg DAILY MARTIN Administration Diltiazem HCl 60 mg 08/11/23 21:00 08/14/23 08:10 Diltiazem Hcl 60 Mg Tablet PO 60 mg BID MARTIN Administration Famotidine 20 mg 08/11/23 21:00 08/14/23 08:11 Famotidine 20 Mg Tablet PO 20 mg BID MARTIN Administration Ferrous Sulfate 324 mg 08/11/23 21:00 08/14/23 08:10 Ferrous Sulfate 324 Mg Tablet. PO 324 mg BID MARTIN Administration Guaifenesin 600 mg 08/14/23 09:00 08/14/23 08:59 Guaifenesin 600 Mg Tablet.Er PO 600 mg Q12HR MARTIN Administration Guaifenesin/Dextromethorphan 5 ml 08/12/23 10:59 08/14/23 00:23 Guaifenesin/Dextromethorphan 200/20 Mg/10 Ml Cup PO 5 ml Q4H PRN Administration Cough Lisinopril 5 mg 08/12/23 09:00 08/14/23 08:11 Lisinopril 5 Mg Tablet PO 5 mg DAILY MARTIN Administration Loperamide HCl 2 mg 08/11/23 17:36 Loperamide Hcl 2 Mg Tablet PO Q12H PRN Diarrhea Ondansetron HCl 4 mg 08/11/23 15:00 Ondansetron Hcl/Pf 4 Mg/2 Ml Sdv IVP Q6H PRN Nausea / Vomiting Potassium Chloride 20 meq 08/13/23 07:30 08/14/23 08:10 Potassium Chloride 20 Meq Tab PO 20 meq [id number] MARTIN Administration Sodium Chloride 1 syr 08/11/23 11:24 08/12/23 05:28 0.9% Sodium Chloride 10 Ml Disp.Syrin IVF 1 syr PRN PRN Administration To flush IV Sodium Chloride 1 syr 08/13/23 21:00 08/14/23 05:11 0.9% Sodium Chloride 10 Ml Disp.Syrin IVF 1 syr Q8HR MARTIN Administration Sodium Chloride 1 gm 08/14/23 09:00 08/14/23 08:59 Sodium Chloride 1 Gm Tablet PO 1 gm TID MARTIN Administration Warfarin Sodium 2 mg 08/13/23 17:00 08/13/23 16:46 Warfarin Sodium 2 Mg Tablet PO 2 mg QPM MARTIN Administration Plan Plan: 1. Acute hypoxic respiratory failure in setting of CHF and covid 19 - Improving but back on 1L, does not wear at baseline. Cont working on weaning O2. Cont dexamethasone, I&Os. Pt declined remdesivir. 2. Acute heart failure with preserved EF exacerbation - Echo with normal EF. IV lasix stopped. I&Os. Daily weights. Fluid restriction 1800. Cardiac diet. 3. Covid 19 - Cont dexamethasone. Pt declines remdesivir. Covid isolation. Proca l negative, no abx warranted. 4. Supratherapeutic INR - Resolved, 2.84 today. Will restart normal dose this evening. Daily INRs. 5. A fib - Cont home meds, warfarin 6. Hyperlipidemia - Cont atorvastatin 7. GERD - Cont home meds 8. Hyponatremia - Na 129. Will monitor. Fluid restriction. Salt tabs added today. 9. Hypokalemia - Replaced DVT Prophylaxis: Warfarin. Review Statement Review Statement: I have personally discussed and reviewed the patient's visit/currently labs/imaging/decision making with Dr. Rangel, my supervising attending. Greater that 50 minutes spent with patient, 50% of the time spent with this patient was devoted to counseling and coordination of care.
[2023-08-14] MEDS ORDERED: COUMADIN PO SCH ×2 (17:00)
[2023-08-15 05:53] LABS: BASOPHILS % (AUTO) 0.1 % (0.0-3.0); HEMOGLOBIN 13.2 g/dl (12.0-16.0); IMMATURE GRANULOCYTE # (AUTO) 0.1 (0.0-1.0); IMMATURE GRANULOCYTE % (AUTO) 0.5 % (0.0-5.0); LYMPHOCYTES # (AUTO) 0.6 K/uL (0.60-3.4); LYMPHOCYTES % (AUTO) 6.6 (10.0-50.0); MEAN CORPUSCULAR HEMOGLOBIN 29.7 pg (27.0-31.0); MEAN CORPUSCULAR HGB CONC 31.4 (31.8-35.4); MEAN CORPUSCULAR VOLUME 94.4 fl (81.0-99.0); MONOCYTES # (AUTO) 0.6 K/uL (0.4-2.0); MONOCYTES % (AUTO) 6.8 (0-10); NEUTROPHILS # (AUTO) 7.9 K/ul (2.0-6.9); PLATELET COUNT 163 10^3/uL (140-440); RDW COEFFICIENT OF VARIATION 13.2 % (11.6-14.8); RED BLOOD COUNT 4.45 10^6/ul (4.20-5.40)
[2023-08-15 06:05] LABS: ALANINE AMINOTRANSFERASE 25.8 U/L (0-35); ALBUMIN 3.44 g/dL (3.5-5.0); ALKALINE PHOSPHATASE 101.2 U/L (53-141); ASPARTATE AMINO TRANSFERASE 26.8 U/L (14-36); BILIRUBIN,TOTAL 0.53 mg/dL (0.2-1.3); BLOOD UREA NITROGEN 21.9 mg/dL (7-17); CALCIUM 8.2 mg/dL (8.4-10.2); CARBON DIOXIDE 37.1 mmol/L (22-30.0); CHLORIDE 92.9 mmol/L (98-107); CREATININE 0.41 mg/dL (0.60-1.30); GLUCOSE 132.7 mg/dL (74-106); SODIUM 130.7 mmol/L (134.5-145); TOTAL PROTEIN 6.73 g/dL (6.3-8.2)
[2023-08-15 06:07] LABS: POTASSIUM 4.06 mmol/L (3.5-5.1)
[2023-08-15 07:58] LABS: PROTHROMBIN TIME 25.1 SEC (9.3-11.0)
[2023-08-15] MEDS: COREG PO SCH (08:15)
[2023-08-15] MEDS: LANOXIN PO SCH (08:15)
[2023-08-15] MEDS: K-DUR PO SCH (08:15)
[2023-08-15] MEDS: ZESTRIL PO SCH (08:16)
[2023-08-15] MEDS: MUCINEX PO SCH (08:16)
[2023-08-15] MEDS: FERROUS SULFATE PO SCH (08:16)
[2023-08-15] MEDS: LIPITOR PO SCH (08:16)
[2023-08-15] MEDS: PEPCID PO SCH (08:16)
[2023-08-15] MEDS: CARDIZEM PO SCH (08:16)
[2023-08-15] MEDS: SODIUM CHLORIDE PO SCH (08:16)
[2023-08-15] MEDS: DECADRON IVP SCH (08:26)
[2023-08-15] MEDS: LASIX TAB PO SCH ×2 (08:51→08:54)
--- NOTE | 2023-08-15 10:10 | DCSUM ---
Admission Date Admission Date: 08/11/23 Discharge Date Discharge Date: 08/15/23 Admission Diagnosis Admission Diagnosis: 1. Acute hypoxic respiratory failure in setting of CHF and covid 19 2. Acute heart failure with preserved EF exacerbation 3. Covid 19 4. Supratherapeutic INR 5. A fib 6. Hyperlipidemia 7. GERD 8. Hyponatremia Discharge Diagnosis Discharge Diagnosis: 1. Acute hypoxic respiratory failure in setting of CHF and covid 19 - Improving but back on 1L, does not wear at baseline. Cont working on weaning O2. Cont dexamethasone, I&Os. Pt declined remdesivir. 2. Acute heart failure with preserved EF exacerbation - Echo with normal EF. IV lasix stopped. I&Os. Daily weights. Fluid restriction 1800. Cardiac diet. 3. Covid 19 - Cont dexamethasone. Pt declines remdesivir. Covid isolation. Procal negative, no abx warranted. 4. Supratherapeutic INR - Resolved, 2.84 today. Will restart normal dose this evening. Daily INRs. 5. A fib - Cont home meds, warfarin 6. Hyperlipidemia - Cont atorvastatin 7. GERD - Cont home meds 8. Hyponatremia - Na 129. Will monitor. Fluid restriction. Salt tabs added today. 9. Hypokalemia - Replaced Hospital Provider Hospital Provider: GOLDEN TRAVIS PA-C, [facility] Primary [facility] Physician Primary Care Physician: JOSE GONZALEZ MD Summary of History and Physical Summary of History and Physical: Patient is a 78 year old female with pmhx of heart failure, a fib, dilated cardiomyopathy, hyperlipidemia, history of breast cancer, b12 deficiency, pulmonary hypertension, gerd, who presented to the ER with worsening covid symptoms. Patient tested positive for covid on 08/09. She states symptoms started about 5-6 days ago. She has progressively worsened with her breathing. She feels very weak. She was noted to have O2 saturation of 90%, placed on 2L. BNP elevated. CXR showing fluid overload. She was given rocephin, solumedrol, lasix, and duoneb in ER. Pt has conversational dyspnea. Snyder was placed in ER and already showing good output. INR noted to be mildly elevated at 3.8. She will be admitted for further management. Discussed her covid diagnosis and risks vs benefits of remdesivir. Pt decided not to treat with remdesivir. She is agreeable to dexamethasone at this time. Hospital Course Subjective: During stay, patient has required 1-2L of O2 via NC. Yesterday, was weaned down to 1L. This am patient was placed on RA and has tolerated well. Sending back to [facility] with prn oxygen. She was given IV lasix for treatment for acute heart failure exacerbation. Echo completed showing normal EF. Transitioned to PO lasix and tolerating well. Has been on cardiac diet with 1800mL fluid restriction. For treatment of Covid-19, patient declined demdesivir. Has been receiving decadron and mucinex. INR was found to be supratherapeutic on admission. Warfarin dosage was adjusted initially. INR later became subtherapeutic and original dosing was resumed. Patient was also found to have mild hyponatremia. Salt tabs were added yesterday due to this and diuresis. NA 130 today. D/c with RX to continue tabs. All home medications continued. No changes made unless otherwise noted above. Appearance: Pleasant, No Apparent Distress and Alert HEENT: MMM and Supple CVS: No Murmur Abdomen: Soft and Non-Tender Respiratory: No Dyspnea Extremities: No Edema Vital Signs: Most Recent Vital Signs Temperature 97 F L 08/15/23 05:29 Temperature Source Temporal Artery Scan 08/15/23 05:29 Temperature Source Infrared 08/11/23 11:17 Pulse Rate 93 08/15/23 08:15 Respiratory Rate 18 08/15/23 05:29 Blood Pressure 168/86 H 08/15/23 05:29 Blood Pressure Mean 113 08/15/23 05:29 Blood Pressure Right Arm 125/78 08/11/23 15:30 Blood Pressure Location Right Arm 08/15/23 05:29 Blood Pressure Position Supine 08/15/23 05:29 O2 Sat by Pulse Oximetry 93 L 08/15/23 05:29 Oxygen Delivery Method Nasal Cannula 08/15/23 05:29 Oxygen Flow Rate 1 08/15/23 05:29 Height 5 ft 2 in 08/11/23 15:30 Weight 102 lb 9.6 oz 08/15/23 05:29 Telemetry Heart Rate 106 H 11/04/22 07:00 Lab Results Last 24 Hours: 08/15/23 08/15/23 06:00 05:00 WBC 9.20 RBC 4.45 Hgb 13.2 Hct 42.0 MCV 94.4 MCH 29.7 MCHC 31.4 L RDW Coeff of [place] 13.2 Plt Count 163 Immature Gran % (Auto) 0.5 Neut % (Auto) 86.0 H Lymph % (Auto) 6.6 L [place] % (Auto) 6.8 Eos % (Auto) 0.0 Baso % (Auto) 0.1 Neut # (Auto) 7.9 H Lymph # (Auto) 0.6 [place] # (Auto) 0.6 Eos # (Auto) 0.0 Baso # (Auto) 0.0 Immature Gran # (Auto) 0.1 PT 25.1 H INR 2.50 Sodium 130.7 L Potassium 4.06 Chloride 92.9 L Carbon Dioxide 37.1 H Anion Gap 4.76 BUN 21.9 H Creatinine 0.41 L Estimated GFR (MDRD) 150.00 BUN/Creatinine Ratio 53.41 Glucose 132.7 H Calcium 8.20 L Total Bilirubin 0.53 AST 26.8 ALT 25.8 Alkaline Phosphatase 101.2 Total Protein 6.73 Albumin 3.44 L Globulin 3.29 Albumin/Globulin Ratio 1.04 Discharge Instructions Discharge Planning: Discharge Planning > 40 minutes If patient is discharged with left ventricular systolic dysfunction: NA Discharged with a beta danika? [] If no, why not? [] Discharged with an abigail/arb? [] If no, why not? [] DX: ACUTE HYPOXIC RESPIRATORY FAILURE IN SETTING OF CHF AND COVID19 ACTIVITY TOLERATED CARDIAC DIET WITH FLUID RESTRICTION FOLLOW-UP WITH PCP THIS WEEK Discharge Medications: Medications at Discharge (Home Meds & RX) famotidine 20 mg tablet (Pepcid) 20 mg PO BID 07/08/21 atorvastatin 10 mg tablet 10 mg PO DAILY #90 tabs 10/11/22 ferrous sulfate 325 mg (65 mg iron) tablet (iron) 325 mg PO BID #180 tabs 10/11/22 furosemide 40 mg tablet (Lasix) 40 mg PO Q OTHER DAY #90 tabs 10/11/22 lisinopril 5 mg tablet 5 mg PO DAILY #90 tabs 10/11/22 carvedilol 12.5 mg tablet See Rx Instructions .Route .COMPLEX #180 tabs 10/14/22 diltiazem HCl 60 mg tablet 60 mg PO BID 10/23/22 ondansetron 4 mg disintegrating tablet 4 mg PO Q6H PRN Nausea And Vomiting #15 tabs 11/04/22 tramadol 50 mg tablet 50 mg PO TID PRN Pain #30 tabs 11/04/22 warfarin 5 mg tablet 5 mg PO 1700 11/04/22 digoxin 125 mcg (0.125 mg) tablet 125 mcg PO DAILY #90 tabs 04/21/23 potassium chloride 10 mEq capsule,extended release 20 meq PO DAILY 08/09/23 acetaminophen 325 mg tablet (Aphen) 650 mg PO Q6H PRN fever or pain 08/11/23 loperamide 2 mg capsule (Anti-Diarrheal (loperamide)) 2 mg PO Q12H PRN diarrhea 08/11/23 Oxygen See Rx Instructions .Route .COMPLEX #1 ea 08/15/23 dexamethasone 1.5 mg (21 tabs) tablets in a dose pack (TaperDex) See Rx Instructions PO .COMPLEX #21 ea 08/15/23 dextromethorphan-guaifenesin 10 mg-100 mg/5 mL oral syrup 5 ml PO Q4H PRN cough #100 mL 08/15/23 guaifenesin 600 mg tablet, extended release 12 hr (Mucinex) 600 mg PO Q12HR #14 tabs 08/15/23 ipratropium 0.5 mg-albuterol 3 mg (2.5 mg base)/3 mL nebulization soln 3 ml NEB RTQ6H PRN shortness of breath or wheezing #100 mL 08/15/23 sodium chloride 1,000 mg soluble tablet 1,000 mg PO TID #90 tabs 08/15/23 Discharge Plan Discharge Discharge Orders: Discharge Patient (ONCE); Ordered 08/15/23 Ordered By: ELMER ROBERSON Activity Restrictions/Additional Instructions: Regular diet Activity as tolerated Follow-up with PCP next week Oxygen 2L/m prn for O2 sat <92%. Medications: Robitussin 5mL every 4 hours prn for cough Decadron taper - complete as directed Mucinex 600 mg twice a day for 7 days Duoneb every 6 hours prn for wheezing or shortness of breath Sodium Chloride 1000 mg three times a day Instructions: Heart Failure (GEN), Fluid Restriction (GEN), COVID-19 (Coronavirus Disease 2019) (GEN) Patient Disposition: TRANSFER SNF Prescriptions: New ipratropium-albuterol 0.5 mg-3 mg(2.5 mg base)/3 mL Solution For Nebulization 3 ml NEB RTQ6H PRN (Reason: shortness of breath or wheezing) Qty: 100 0RF dextromethorphan-guaifenesin 10-100 mg/5 mL Syrup 5 ml PO Q4H PRN (Reason: cough) Qty: 100 0RF sodium chloride 1,000 mg Tablet,Soluble 1,000 mg PO TID Qty: 90 0RF guaifenesin [Mucinex] 600 mg Tablet Extended Release 12hr 600 mg PO Q12HR Qty: 14 0RF dexamethasone [TaperDex] 1.5 mg (21 tabs) tablets,dose pack See Rx Instructions .ROUTE .COMPLEX Qty: 21 0RF Rx Instructions: orally per package directions Oxygen See Rx Instructions .ROUTE .COMPLEX Qty: 1 0RF Rx Instructions: 2L/M oxygen prn for O2 sat <92% Continued carvedilol 12.5 mg tablet See Rx Instructions .ROUTE .COMPLEX Qty: 180 1RF Dose Instruction: TAKE ONE TABLET TWICE DAILY WITH MEALS Rx Instructions: TAKE ONE TABLET TWICE DAILY WITH MEALS digoxin 125 mcg (0.125 mg) tablet 125 mcg PO DAILY Qty: 90 1RF Rx Instructions: only 5 days/wk diltiazem HCl 60 mg tablet 60 mg PO BID acetaminophen [Aphen] 325 mg tablet 650 mg PO Q6H PRN (Reason: fever or pain) loperamide [Anti-Diarrheal (loperamide)] 2 mg capsule 2 mg PO Q12H PRN (Reason: diarrhea) famotidine [Pepcid] 20 mg Tablet 20 mg PO BID tramadol 50 mg Tablet 50 mg PO TID PRN (Reason: Pain) Qty: 30 0RF ondansetron 4 mg Tablet,Disintegrating 4 mg PO Q6H PRN (Reason: Nausea And Vomiting) Qty: 15 0RF warfarin 5 mg Tablet 5 mg PO 1700 potassium chloride 10 mEq Capsule, Extended Release 20 meq PO DAILY furosemide [Lasix] 40 mg tablet 40 mg PO Q OTHER DAY Qty: 90 1RF ferrous sulfate [iron] 325 mg (65 mg iron) tablet 325 mg PO BID Qty: 180 1RF atorvastatin 10 mg tablet 10 mg PO DAILY Qty: 90 1RF lisinopril 5 mg tablet 5 mg PO DAILY Qty: 90 1RF Did you review [place] [employer] for ALL controlled substances?: No Discussed opioids are addictive and Narcan is available by prescription or from pharmacy.: No Condition: Stable
[2023-08-15 10:15] VITALS: BP 135/68; PULSE 76; RESP 16; TEMP 97.6
== END 2023-08-15 14:00 | DRG 177 ==
LOC: ED 11:13 → SCU 14:53
PROVIDERS: ADMIT Hospitalist; ATTEND Physician Assistant
DX: I48.91 Unspecified atrial fibrillation; E78.5 Hyperlipidemia, unspecified; I27.20 Pulmonary hypertension, unspecified; J96.91 Respiratory failure, unspecified with hypoxia; I50.33 Acute on chronic diastolic (congestive) heart failure; I42.0 Dilated cardiomyopathy; Z79.01 Long term (current) use of anticoagulants; E87.1 Hypo-osmolality and hyponatremia; U07.1 COVID-19; J12.82 Pneumonia due to coronavirus disease 2019; K21.9 Gastro-esophageal reflux disease without esophagitis